=== PATIENT | male | born 1935 | race Caucasian/White ===

== ENCOUNTER 2018-10-18 07:01 | Day surgery (SDC) | payer MEDICARE, OTHER ==
[~2018-10-18] VITALS: Ht 188 cm; Wt 91.0 kg
[~2018-10-18 07:01] MED LIST: ASPI325 PO; CLOP75 PO; Cipro500 MG PO; Flomax0.4 MG PO; HYDPAM50 PO; METF500; METO25ER PO; NITR.6SL SL; OMEP20ER PO; OXYACE5T PO; PANT40 PO; QUIN5 PO; ROSU10TA PO; RXNITR.4; Vitamin D2000 UNIT PO
--- NOTE | 2018-10-18 12:01 | NUR ---
PT AND FRIEND VERBALIZES UNDERSTANDING WRITTEN AND VERBAL ORDERS. ALL AIR RELEASED FROM TR BAND. NO BLEEDING OR HEMATOMA NOTED. VSS. CALL LIGHT WITHIN REACH.
--- NOTE | 2018-10-18 13:08 | NUR ---
PT TR BAND REMOVED. DOT DRESSING APPLIED. NO BLEEDING OR HEMATOMA NOTED. SLINT AND SLING APPLIED FOR COMFORT. PT DRESSES SELF WITH MINIMAL ASSISTANCE. PT DC TO HOME VIA WC BY ESCORT.
== END 2018-10-18 13:08 | disposition home or self-care (01) ==
LOC: MHTC 07:01
DX: Z01.810 Encounter for preprocedural cardiovascular examination (principal); I35.0 Nonrheumatic aortic (valve) stenosis; I25.10 Atherosclerotic heart disease of native coronary artery without angina pectoris; I25.5 Ischemic cardiomyopathy; I10 Essential (primary) hypertension; E11.9 Type 2 diabetes mellitus without complications; I25.2 Old myocardial infarction; E78.5 Hyperlipidemia, unspecified; K21.9 Gastro-esophageal reflux disease without esophagitis; Z79.899 Other long term (current) drug therapy; Z79.82 Long term (current) use of aspirin; Z79.84 Long term (current) use of oral hypoglycemic drugs; Z87.891 Personal history of nicotine dependence; Z88.8 Allergy status to other drugs, medicaments and biological substances
CPT/HCPCS: 93454; 99152; 99153; C1769; C1894; J1644; J2250; J3010; J7030; Q9967

== ENCOUNTER 2020-02-09 12:01 | Inpatient (IN) | payer MEDICARE, OTHER ==
[~2020-02-09] VITALS: Ht 185.4 cm; Wt 86.7 kg
[~2020-02-09 12:01] MED LIST changes: -METF500; +METF500 PO
[2020-02-09] MEDS ORDERED: Quinapril HCl20 MG PO (12:19)
[2020-02-09] MEDS ORDERED: ATOR10 PO (12:19)
[2020-02-09] MEDS ORDERED: TORSE20 PO (12:21)
[2020-02-09] MEDS ORDERED: Flomax0.4 MG PO (13:41)
[2020-02-09] MEDS ORDERED: FERSU300 PO (13:43)
[2020-02-09 14:22] LABS: BASOPHILS ABSOLUTE AUTO 0.04 K/mm3 (0.00-0.23); BASOPHILS PERCENT AUTO 1 % (0-2); EOSINOPHILS ABSOLUTE AUTO 0.08 K/mm3 (0.00-0.68); EOSINOPHILS PERCENT AUTO 1 % (0-6); Hemoglobin 12.7 g/dL (13.5-17.5); IMMATURE GRAN ABSOLUTE AUTO 0.03 K/mm3 (0.00-0.10); IMMATURE GRAN PERCENT AUTO 0 % (0-1); LYMPHOCYTES PERCENT AUTO 9 % (21-46); MONOCYTES ABSOLUTE AUTO 0.53 K/mm3 (0.16-1.47); MONOCYTES PERCENT AUTO 6 % (4-13); Mean Corpuscular HGB Conc 31.8 g/dL (31.5-36.5); Mean Corpuscular Volume 88 fL (80-100); Mean Platelet Volume 10.9 fL (9.1-12.4); NEUTROPHILS ABSOLUTE AUTO 7.23 K/mm3 (1.96-9.15); NEUTROPHILS PERCENT AUTO 83 % (41-73); Platelet Count 163 K/mm3 (150-400); RDW Coefficient Variation 14.8 % (11.7-14.2); RDW Standard Deviation 48.2 fL (35.1-46.3); Red Blood Cell Count 4.53 M/mm3 (4.30-5.90); White Blood Cell Count 8.71 K/mm3 (4.00-11.30)
[2020-02-09 14:37] LABS: International Normalized Ratio 1.02; Prothrombin Time Results 10.9 Sec (9.7-11.5)
[2020-02-09 14:54] LABS: Alanine Aminotransfer (ALT/SGP 32 U/L (12-78); Albumin, Blood 3.7 g/dL (3.4-5.0); Albumin/Globulin Ratio 0.9 (0.8-1.8); Alk Phos 101 U/L (50-136); Anion Gap 5 mmol/L (6-16); Aspartate Aminotrans (AST/SGOT 64 U/L (12-37); Bilirubin, Total 0.6 mg/dL (0.1-1.0); Blood Urea Nitrogen 17 mg/dL (8-24); Bun/Creatinine Ratio 21.3 (12.0-20.0); CO2, Blood 27 mmol/L (21-32); Calcium, Blood 8.9 mg/dL (8.5-10.1); Chloride, Blood 108 mmol/L (98-108); Globulin, Blood 4.2 g/dL (2.2-4.0); Glomerular Filtration Rate >60 (60-); Glucose, Blood 122 mg/dL (70-99); Potassium, Blood 4.3 mmol/L (3.5-5.5); Sodium, Blood 140 mmol/L (136-145); Total Protein, Blood 7.9 g/dL (6.4-8.2)
--- NOTE | 2020-02-09 19:30 | NUR ---
SHIFT SUMMARY PATIENT STATES MUSCLE SPASMS TO RLE IMPROVED WITH PO AND IV PAIN MEDS. CIRC CHECKS TO LE'S WNL. TOLERATING PO. VOIDING.IVF INFUSING PER ORDER. DR PRATHER IN TO SEE AT SHIFT CHANGE. PLAN FOR CARDIAC CONSULT AND ECHO PRIOR TO SURGERY. NO ACUTE CHANGES.
--- NOTE | 2020-02-10 05:26 | NUR ---
PT VSS T/O NIGHT. RLE SHORTENED, EXT ROTATED, CAP REFILL WNL. PAIN MGD W/PO PAIN MEDS AND ICE W/REP RELIEF. PT REPOSITIONED GENTLY KAUSHIK. PT NPO POST MIDNIGHT FOR PLAN FOR OR TODAY. CARDIOLOGY CONSULT PENDING. PT USING CALL LIGHT FOR ASSISTANCE. WILL CONT TO MONITOR UNTIL REP GIVEN TO ONCOMING RN.
--- NOTE | 2020-02-10 16:55 | NUR ---
PREOPED PT IN ROOM 213. Surgical site prepped with 2% Chlorhexidine cloth wipe. History, Chart, Medications and Allergies reviewed before start of procedure. Lungs clear T/O to Auscultation. Patient confirms NPO status and agrees with scheduled surgery. Pre-Op teaching done. Pt verbalizes understanding.
--- NOTE | 2020-02-10 17:20 | NUR ---
PATIENT TO DAY SURGERY AT THIS TIME. NO ACUTE CHANGES.
--- NOTE | 2020-02-11 04:09 | NUR ---
SHIFT SUMMARY PT IS S/P R KELLIE HIP, AND RETURNED TO ROOM 213 APPROX [id number]. UPON ARRIVAL PT WAS VERY DROWSY AND ON 5L O2 NC. O2 WEANED DOWN TO 2L MAINTAING O2 SAT. BIOX IN PLACE AND TELE ON. AROUND 0200 PT AWAKENED, VOIDED IN URINAL, AND ATE SOME SNACKS. PT IS A/O AT THIS TIME. PT REPORTS PAIN MANAGED WELL WITH PO PAIN MED. TOLERATING PO INTAKE. VSS. PT CURRENTLY ON 1-2L O2 NC WITH O2 SAT ABOVE 92%. DRESSING TO R HIP CDI, PEDAL PULSES STRONG, CAP REFIL <3 SEC. SCD'S AND FRANTZ'S IN PLACE.
[2020-02-11 04:34] LABS: BASOPHILS ABSOLUTE AUTO 0.01 K/mm3 (0.00-0.23); BASOPHILS PERCENT AUTO 0 % (0-2); EOSINOPHILS PERCENT AUTO 0 % (0-6); Hemoglobin 10.6 g/dL (13.5-17.5); IMMATURE GRAN ABSOLUTE AUTO 0.03 K/mm3 (0.00-0.10); IMMATURE GRAN PERCENT AUTO 0 % (0-1); LYMPHOCYTES PERCENT AUTO 4 % (21-46); MONOCYTES ABSOLUTE AUTO 0.55 K/mm3 (0.16-1.47); MONOCYTES PERCENT AUTO 6 % (4-13); Mean Corpuscular HGB 28.5 pg (26.0-34.0); Mean Corpuscular HGB Conc 32.1 g/dL (31.5-36.5); Mean Corpuscular Volume 89 fL (80-100); Mean Platelet Volume 11.7 fL (9.1-12.4); NEUTROPHILS ABSOLUTE AUTO 8.85 K/mm3 (1.96-9.15); NEUTROPHILS PERCENT AUTO 90 % (41-73); Platelet Count 111 K/mm3 (150-400); RDW Coefficient Variation 15.3 % (11.7-14.2); RDW Standard Deviation 49.9 fL (35.1-46.3); Red Blood Cell Count 3.72 M/mm3 (4.30-5.90); White Blood Cell Count 9.84 K/mm3 (4.00-11.30)
[2020-02-11 04:56] LABS: Albumin, Blood 2.9 g/dL (3.4-5.0); Anion Gap 5 mmol/L (6-16); Blood Urea Nitrogen 18 mg/dL (8-24); Bun/Creatinine Ratio 23.9 (12.0-20.0); CO2, Blood 25 mmol/L (21-32); Calcium, Blood 7.9 mg/dL (8.5-10.1); Chloride, Blood 107 mmol/L (98-108); Creatinine, Blood 0.75 mg/dL (0.60-1.20); Glomerular Filtration Rate >60 (60-); Glucose, Blood 247 mg/dL (70-99); Magnesium, Blood 1.6 mg/dL (1.6-2.4); Phosphorus, Blood 2.6 mg/dL (2.5-4.9); Potassium, Blood 4.7 mmol/L (3.5-5.5); Sodium, Blood 137 mmol/L (136-145); Troponin I 0.017 ng/mL (0.000-0.040)
--- NOTE | 2020-02-11 10:37 | NUR ---
THERAPY IN ROOM.
--- NOTE | 2020-02-11 11:07 | NUR ---
DR PRATHER HERE TO SEE PT, FAMILY AND THERAPY IN ROOM.
--- NOTE | 2020-02-11 16:04 | NUR ---
SHIFT SUMMARY PT EATING AND DRINKING, VOIDING. PT BEEN ASSISTED WITH ADL'S PRN. PT WORKED WITH THERAPY TODAY. PT BEEN UP AND AMBULATED WITH ASSIST AND WALKER. FAMILY IN ROOM EARLIER TODAY. PT REPORTS HAVING WALKER AT HOME.
--- NOTE | 2020-02-11 20:47 | NUR ---
READY FOR BED.
--- NOTE | 2020-02-12 04:30 | NUR ---
SHIFT SUMMARY PT A/O X4. AMBULATING WITH SBA AND FWW. PT HAS BEEN UP TO BATHROOM SEVERAL TIMES T/O SHIFT. PAIN MANAGED WTIH PO PAIN MED PER ORDERS. TOLERATING PO INTAKE AND VOIDING. REPORTS NO BM X2-3 DAYS; DISCUSSED BOWEL CARE AND MED WITH STOOL SOFTENERS PER ORDERS. NO ACUTE CHANGES OVERNIGHT.
[2020-02-12 04:52] LABS: BASOPHILS ABSOLUTE AUTO 0.02 K/mm3 (0.00-0.23); BASOPHILS PERCENT AUTO 0 % (0-2); EOSINOPHILS ABSOLUTE AUTO 0.14 K/mm3 (0.00-0.68); EOSINOPHILS PERCENT AUTO 2 % (0-6); Hematocrit 29.2 % (37.0-53.0); Hemoglobin 9.5 g/dL (13.5-17.5); IMMATURE GRAN ABSOLUTE AUTO 0.07 K/mm3 (0.00-0.10); IMMATURE GRAN PERCENT AUTO 1 % (0-1); LYMPHOCYTES ABSOLUTE AUTO 1.45 K/mm3 (0.84-5.20); LYMPHOCYTES PERCENT AUTO 16 % (21-46); MONOCYTES ABSOLUTE AUTO 0.98 K/mm3 (0.16-1.47); MONOCYTES PERCENT AUTO 11 % (4-13); Mean Corpuscular HGB 28.6 pg (26.0-34.0); Mean Corpuscular HGB Conc 32.5 g/dL (31.5-36.5); Mean Corpuscular Volume 88 fL (80-100); Mean Platelet Volume 11.4 fL (9.1-12.4); NEUTROPHILS ABSOLUTE AUTO 6.65 K/mm3 (1.96-9.15); NEUTROPHILS PERCENT AUTO 71 % (41-73); Platelet Count 101 K/mm3 (150-400); RDW Coefficient Variation 15.7 % (11.7-14.2); RDW Standard Deviation 49.6 fL (35.1-46.3); Red Blood Cell Count 3.32 M/mm3 (4.30-5.90); White Blood Cell Count 9.31 K/mm3 (4.00-11.30)
[2020-02-12 05:10] LABS: Albumin, Blood 2.7 g/dL (3.4-5.0); Anion Gap 6 mmol/L (6-16); Blood Urea Nitrogen 26 mg/dL (8-24); Bun/Creatinine Ratio 29.1 (12.0-20.0); CO2, Blood 25 mmol/L (21-32); Calcium, Blood 7.8 mg/dL (8.5-10.1); Chloride, Blood 108 mmol/L (98-108); Creatinine, Blood 0.89 mg/dL (0.60-1.20); Glomerular Filtration Rate >60 (60-); Glucose, Blood 134 mg/dL (70-99); Magnesium, Blood 1.8 mg/dL (1.6-2.4); Phosphorus, Blood 2.4 mg/dL (2.5-4.9); Potassium, Blood 3.8 mmol/L (3.5-5.5); Sodium, Blood 139 mmol/L (136-145)
--- NOTE | 2020-02-12 11:23 | NUR ---
THERAPY BEEN TO WORK WITH PT.
--- NOTE | 2020-02-12 13:01 | NUR ---
THERAPY RECENTLY TO ROOM.
[2020-02-12] MEDS ORDERED: METO50ER PO (14:43)
[2020-02-12] MEDS ORDERED: ACET325 PO (14:46)
[2020-02-12] MEDS ORDERED: TORSE20 PO (14:46)
[2020-02-12] MEDS ORDERED: DOCUZEN 8.6-501 EACH PO (14:48)
[2020-02-12] MEDS ORDERED: Percocet 5-3251 EACH PO (14:49)
--- NOTE | 2020-02-12 15:24 | NUR ---
DISCHARGE: PT EATING AND DRINKING, VOIDING, PASSING GAS. PT CLEARED THERAPY TO GO HOME WITH H.H.. PT PAIN TOLERABLE ON PO PAIN MEDICATION. PT REPORTS HAVING APPR EQUIP AT HOME. PT SENT WITH SCRIPT FOR PAIN MED, OTHER MEDICATION CHANGES CALLED TO [facility]. FAMILY HERE DURING DISCHARGE WELL EARLIER TODAY WHEN THERAPY WAS IN ROOM. PT CLEARED BY DR PRATHER TO GO HOME. DR PRATHER REPORTED D/C ASPIRIN ORDER ON DISCHARGE PT IS ALSO ON PLAVIX.
== END 2020-02-12 15:15 | disposition home health service (06) | DRG 470 ==
LOC: ER 12:01 → SURS 13:21
PROVIDERS: Internal Medicine Gastroenterology; Nurse Practitioner Acute Care; Student in an Organized Health Care Education/Training Program; ADMIT Internal Medicine
PROC: 0SRR0JA Replacement of Right Hip Joint, Femoral Surface with Synthetic Substitute, Uncemented, Open Approach (ICD-10-PCS; principal; 2020-02-11)
DX: S72.001A Fracture of unspecified part of neck of right femur, initial encounter for closed fracture (principal); I50.22 Chronic systolic (congestive) heart failure; W11.XXXA Fall on and from ladder, initial encounter; I25.5 Ischemic cardiomyopathy; E11.9 Type 2 diabetes mellitus without complications; K59.00 Constipation, unspecified; I25.10 Atherosclerotic heart disease of native coronary artery without angina pectoris; K21.9 Gastro-esophageal reflux disease without esophagitis; N40.0 Benign prostatic hyperplasia without lower urinary tract symptoms; E78.5 Hyperlipidemia, unspecified; I11.0 Hypertensive heart disease with heart failure; K22.70 Barrett's esophagus without dysplasia; Z95.5 Presence of coronary angioplasty implant and graft; Z95.2 Presence of prosthetic heart valve; I25.2 Old myocardial infarction; Z79.84 Long term (current) use of oral hypoglycemic drugs; Z79.02 Long term (current) use of antithrombotics/antiplatelets; Z87.891 Personal history of nicotine dependence
CPT/HCPCS: 36415; 72170; 73502; 80053; 80069; 82947; 83735; 83880; 84484; 85025; 85610; 88305; 88311; 93005; 93010; 93306; 94762; 97110; 97116; 97162; 97166; 97535; 99285-25; A9270; A9270-GY; C1776; J0690; J1100; J1885; J1940; J2405; J2704; J3010; J7030; J7120; U0002

== ENCOUNTER 2020-03-31 15:49 | Emergency (ER) | payer MEDICARE, OTHER ==
[~2020-03-31] VITALS: Ht 188 cm; Wt 86.2 kg
== END 2020-03-31 17:34 | disposition home or self-care (01) ==
LOC: ER 15:49
DX: I11.0 Hypertensive heart disease with heart failure (principal); I50.9 Heart failure, unspecified; I25.10 Atherosclerotic heart disease of native coronary artery without angina pectoris; N40.0 Benign prostatic hyperplasia without lower urinary tract symptoms; E11.9 Type 2 diabetes mellitus without complications; E78.5 Hyperlipidemia, unspecified; I25.2 Old myocardial infarction; Z95.5 Presence of coronary angioplasty implant and graft; Z87.891 Personal history of nicotine dependence; Z79.02 Long term (current) use of antithrombotics/antiplatelets; Z79.84 Long term (current) use of oral hypoglycemic drugs; Z79.899 Other long term (current) drug therapy
CPT/HCPCS: 36415; 93005; 93010; 96374; 99284-25; J1940

== ENCOUNTER → 2020-03-31 | Outpatient (CLI) | payer MEDICARE, OTHER ==
[~2020-03-31] MED LIST changes: +ACET325 PO; +ATOR10 PO; +DOCUZEN 8.6-501 EACH PO; +FERSU300 PO; +METO50ER PO; +Percocet 5-3251 EACH PO; +Quinapril HCl20 MG PO; +TORSE20 PO
[2020-03-31 15:00] LABS: BASOPHILS ABSOLUTE AUTO 0.02 K/mm3 (0.00-0.23); BASOPHILS PERCENT AUTO 0 % (0-2); EOSINOPHILS ABSOLUTE AUTO 0.07 K/mm3 (0.00-0.68); EOSINOPHILS PERCENT AUTO 1 % (0-6); Hematocrit 32.1 % (37.0-53.0); Hemoglobin 10.5 g/dL (13.5-17.5); IMMATURE GRAN ABSOLUTE AUTO 0.03 K/mm3 (0.00-0.10); IMMATURE GRAN PERCENT AUTO 1 % (0-1); LYMPHOCYTES PERCENT AUTO 16 % (21-46); MONOCYTES ABSOLUTE AUTO 0.42 K/mm3 (0.16-1.47); MONOCYTES PERCENT AUTO 9 % (4-13); Mean Corpuscular HGB 29.5 pg (26.0-34.0); Mean Corpuscular HGB Conc 32.7 g/dL (31.5-36.5); Mean Corpuscular Volume 90 fL (80-100); Mean Platelet Volume 10.2 fL (9.1-12.4); NEUTROPHILS ABSOLUTE AUTO 3.56 K/mm3 (1.96-9.15); NEUTROPHILS PERCENT AUTO 73 % (41-73); Platelet Count 216 K/mm3 (150-400); RDW Coefficient Variation 15.9 % (11.7-14.2); RDW Standard Deviation 52.6 fL (35.1-46.3); Red Blood Cell Count 3.56 M/mm3 (4.30-5.90)
[2020-03-31 15:04] LABS: Anion Gap 6 mmol/L (6-16); Blood Urea Nitrogen 26 mg/dL (8-24); Bun/Creatinine Ratio 26.3 (12.0-20.0); CO2, Blood 30 mmol/L (21-32); Calcium, Blood 8.9 mg/dL (8.5-10.1); Chloride, Blood 102 mmol/L (98-108); Creatinine, Blood 0.99 mg/dL (0.60-1.20); Glomerular Filtration Rate >60 (60-); Glucose, Blood 156 mg/dL (70-99); Potassium, Blood 4.3 mmol/L (3.5-5.5); Sodium, Blood 138 mmol/L (136-145)
== END | disposition home or self-care (01) ==
LOC: LAB SHORT 14:54 → LAB EV 14:54
PROVIDERS: Physician Assistant Surgical
DX: R06.09 Other forms of dyspnea (principal)
CPT/HCPCS: 80048; 83880; 85025

== ENCOUNTER → 2020-04-07 | Outpatient (CLI) | payer MEDICARE, OTHER ==
[2020-04-07 16:32] LABS: BASOPHILS ABSOLUTE AUTO 0.03 K/mm3 (0.00-0.23); BASOPHILS PERCENT AUTO 0 % (0-2); EOSINOPHILS ABSOLUTE AUTO 0.11 K/mm3 (0.00-0.68); EOSINOPHILS PERCENT AUTO 2 % (0-6); Hematocrit 32.9 % (37.0-53.0); Hemoglobin 10.7 g/dL (13.5-17.5); IMMATURE GRAN ABSOLUTE AUTO 0.02 K/mm3 (0.00-0.10); IMMATURE GRAN PERCENT AUTO 0 % (0-1); LYMPHOCYTES ABSOLUTE AUTO 1.09 K/mm3 (0.84-5.20); LYMPHOCYTES PERCENT AUTO 15 % (21-46); MONOCYTES ABSOLUTE AUTO 0.69 K/mm3 (0.16-1.47); MONOCYTES PERCENT AUTO 9 % (4-13); Mean Corpuscular HGB Conc 32.5 g/dL (31.5-36.5); Mean Corpuscular Volume 89 fL (80-100); Mean Platelet Volume 11.3 fL (9.1-12.4); NEUTROPHILS ABSOLUTE AUTO 5.43 K/mm3 (1.96-9.15); NEUTROPHILS PERCENT AUTO 74 % (41-73); Platelet Count 216 K/mm3 (150-400); RDW Coefficient Variation 15.5 % (11.7-14.2); RDW Standard Deviation 51.1 fL (35.1-46.3); Red Blood Cell Count 3.69 M/mm3 (4.30-5.90); White Blood Cell Count 7.37 K/mm3 (4.00-11.30)
[2020-04-07 16:51] LABS: Alanine Aminotransfer (ALT/SGP 26 U/L (12-78); Albumin, Blood 3.5 g/dL (3.4-5.0); Albumin/Globulin Ratio 0.7 (0.8-1.8); Alk Phos 149 U/L (40-126); Anion Gap 5 mmol/L (6-16); Aspartate Aminotrans (AST/SGOT 57 U/L (12-37); Bilirubin, Total 0.7 mg/dL (0.1-1.0); Blood Urea Nitrogen 19 mg/dL (8-24); Bun/Creatinine Ratio 17.9 (12.0-20.0); CO2, Blood 33 mmol/L (21-32); Calcium, Blood 9.1 mg/dL (8.5-10.1); Chloride, Blood 100 mmol/L (98-108); Creatinine, Blood 1.06 mg/dL (0.60-1.20); Globulin, Blood 4.8 g/dL (2.2-4.0); Glomerular Filtration Rate >60 (60-); Glucose, Blood 122 mg/dL (70-99); Potassium, Blood 4.1 mmol/L (3.5-5.5); Sodium, Blood 138 mmol/L (136-145); Thyroid Stimulating Hormone 1.755 uIU/mL (0.360-4.800); Total Protein, Blood 8.3 g/dL (6.4-8.2)
== END | disposition home or self-care (01) ==
LOC: LAB SHORT 14:06 → LAB EV 14:06
PROVIDERS: General Practice
DX: E13.621 Other specified diabetes mellitus with foot ulcer (principal); I50.9 Heart failure, unspecified; R53.81 Other malaise
CPT/HCPCS: 80053; 83735; 83880; 84443; 85025; 87070; 87075; 87077; 87147; 87186; 87205

== ENCOUNTER → 2020-06-18 | Outpatient (CLI) | payer MEDICARE, OTHER ==
[~2020-06-18] MED LIST changes: +ALBU90OI INH; +ANORO ELLIPTA1 EAC1 INH; +ANORO ELLIPTA1 EACH INH; +ANTIFUNGAL POWD71 GM TOP; +APHEN325 MG PO; +Aspirin EC81 MG PO; +Ativan1 MG PO; +BISA10S PR; +BUME2 PO; +BUMETANIDE2 MG PO; +FINA5 PO; +FURO20 PO; +FUROSEMIDE20 MG PO; +GABA300 PO; +LISI5 PO; +MAGCIT300 PO; +MELATONIN5 M1 PO; +METO5 PO; +MIRALAX17 GM PO; +MORP20L PO; +POTA10T PO; +Potassium Chlo20 ME1 PO; +SPIR25 PO
[2020-06-18 12:39] LABS: BASOPHILS ABSOLUTE AUTO 0.03 K/mm3 (0.00-0.23); BASOPHILS PERCENT AUTO 0 % (0-2); EOSINOPHILS ABSOLUTE AUTO 0.07 K/mm3 (0.00-0.68); EOSINOPHILS PERCENT AUTO 1 % (0-6); Hematocrit 33.8 % (37.0-53.0); Hemoglobin 11.1 g/dL (13.5-17.5); IMMATURE GRAN ABSOLUTE AUTO 0.01 K/mm3 (0.00-0.10); IMMATURE GRAN PERCENT AUTO 0 % (0-1); LYMPHOCYTES ABSOLUTE AUTO 0.93 K/mm3 (0.84-5.20); LYMPHOCYTES PERCENT AUTO 14 % (21-46); MONOCYTES PERCENT AUTO 9 % (4-13); Mean Corpuscular HGB 30.1 pg (26.0-34.0); Mean Corpuscular HGB Conc 32.8 g/dL (31.5-36.5); Mean Corpuscular Volume 92 fL (80-100); Mean Platelet Volume 11.3 fL (9.1-12.4); NEUTROPHILS ABSOLUTE AUTO 5.21 K/mm3 (1.96-9.15); NEUTROPHILS PERCENT AUTO 76 % (41-73); Platelet Count 150 K/mm3 (150-400); RDW Coefficient Variation 17.2 % (11.7-14.2); RDW Standard Deviation 58.2 fL (35.1-46.3); Red Blood Cell Count 3.69 M/mm3 (4.30-5.90); White Blood Cell Count 6.85 K/mm3 (4.00-11.30)
[2020-06-18 12:50] LABS: Albumin, Blood 3.7 g/dL (3.4-5.0); Albumin/Globulin Ratio 0.9 (0.8-1.8); Bilirubin, Total 1.1 mg/dL (0.1-1.0); Bun/Creatinine Ratio 18.6 (12.0-20.0); Calcium, Blood 8.8 mg/dL (8.5-10.1); Creatinine, Blood 1.18 mg/dL (0.60-1.20); Globulin, Blood 4.1 g/dL (2.2-4.0); Magnesium, Blood 1.4 mg/dL (1.6-2.4); Potassium, Blood 3.8 mmol/L (3.5-5.5); Total Protein, Blood 7.8 g/dL (6.4-8.2)
== END ==
LOC: LAB SHORT 12:33
PROVIDERS: Physician Assistant
DX: M79.605 Pain in left leg (principal)
CPT/HCPCS: 80053; 83735; 85025

== ENCOUNTER 2020-07-12 16:52 | Inpatient (IN) | payer MEDICARE, OTHER ==
[~2020-07-12] VITALS: Ht 188 cm; Wt 101.0 kg
[~2020-07-12 16:52] MED LIST changes: -ALBU90OI INH; -ANORO ELLIPTA1 EAC1 INH; -ANORO ELLIPTA1 EACH INH; -ANTIFUNGAL POWD71 GM TOP; -APHEN325 MG PO; -Aspirin EC81 MG PO; -Ativan1 MG PO; -BISA10S PR; -BUME2 PO; -BUMETANIDE2 MG PO; -FINA5 PO; -FURO20 PO; -FUROSEMIDE20 MG PO; -GABA300 PO; -LISI5 PO; -MAGCIT300 PO; -MELATONIN5 M1 PO; -METO5 PO; -MIRALAX17 GM PO; -MORP20L PO; -POTA10T PO; -Potassium Chlo20 ME1 PO; -SPIR25 PO
[2020-07-12 17:24] LABS: BASOPHILS ABSOLUTE AUTO 0.03 K/mm3 (0.00-0.23); BASOPHILS PERCENT AUTO 0 % (0-2); EOSINOPHILS ABSOLUTE AUTO 0.13 K/mm3 (0.00-0.68); EOSINOPHILS PERCENT AUTO 2 % (0-6); Hemoglobin 11.7 g/dL (13.5-17.5); IMMATURE GRAN ABSOLUTE AUTO 0.02 K/mm3 (0.00-0.10); IMMATURE GRAN PERCENT AUTO 0 % (0-1); LYMPHOCYTES ABSOLUTE AUTO 0.75 K/mm3 (0.84-5.20); LYMPHOCYTES PERCENT AUTO 10 % (21-46); MONOCYTES ABSOLUTE AUTO 0.64 K/mm3 (0.16-1.47); MONOCYTES PERCENT AUTO 9 % (4-13); Mean Corpuscular HGB 29.7 pg (26.0-34.0); Mean Corpuscular HGB Conc 31.6 g/dL (31.5-36.5); Mean Corpuscular Volume 94 fL (80-100); Mean Platelet Volume 11.3 fL (9.1-12.4); NEUTROPHILS ABSOLUTE AUTO 5.87 K/mm3 (1.96-9.15); NEUTROPHILS PERCENT AUTO 79 % (41-73); Platelet Count 145 K/mm3 (150-400); RDW Coefficient Variation 16.4 % (11.7-14.2); RDW Standard Deviation 56.1 fL (35.1-46.3); Red Blood Cell Count 3.94 M/mm3 (4.30-5.90); White Blood Cell Count 7.44 K/mm3 (4.00-11.30)
[2020-07-12 17:43] LABS: Anion Gap 10 mmol/L (6-16); Blood Urea Nitrogen 39 mg/dL (8-24); Bun/Creatinine Ratio 41.7 (12.0-20.0); CO2, Blood 30 mmol/L (21-32); Chloride, Blood 100 mmol/L (98-108); Creatinine, Blood 0.94 mg/dL (0.60-1.20); Glomerular Filtration Rate >60 (60-); Glucose, Blood 131 mg/dL (70-99); Potassium, Blood 3.9 mmol/L (3.5-5.5); Sodium, Blood 140 mmol/L (136-145); Troponin I 0.028 ng/mL (0.000-0.040)
[2020-07-12] MEDS ORDERED: ANORO ELLIPTA1 EAC1 INH (19:55)
[2020-07-12] MEDS ORDERED: BUMETANIDE2 MG PO (19:55)
[2020-07-12] MEDS ORDERED: Aspirin EC81 MG PO (19:57)
--- NOTE | 2020-07-12 22:52 | NUR ---
PATIENT IS A NEW ADMIT FROM THE ED. THREE PERSON TRANSFER FROM [facility] TO BED. ARRIVED ON 2L O2 NC AND 2L O2 BASELINE. AXO X3 USING URINAL AT BEDSIDE. LASIX GIVEN IN ED. ONE PERSON ASSIST TO BSC. SOB WITH EXERTION. COMPRESSION STOCKING REMOVED. SON PRESENT ON ADMIT AND LEFT AFTER HEALTH HX PART OF ADMISSION. PATIENT ORIENTED TO ROOM AND CALL LIGHT SYSTEM. REPORTS COLD AND WARM BLANKET PROVIDED. DENIES CHEST PAIN AND N/V. WILL CONTINUE TO MONITOR.
--- NOTE | 2020-07-13 03:39 | NUR ---
PATIENT REPORTED NOT BEING ABLE TO RETRACT FORESKIN WITH SWELLING OF SCROTUM AND PENIS. HOSPITALIST DR RAMOS NOTIFIED AND REPORTED HE OFFERED TO PLACE RODRIGUEZ CATHETER IN ED AND PATIENT REFUSED. PATIENT OFFERED AGAIN NOW REFUSING AT THIS TIME. ELEVATION AND ICE OFFERED AND DECLINED. PATIENT IS VOIDING ON LASIX.
--- NOTE | 2020-07-13 03:43 | NUR ---
SHIFT SUMMARY PATIENT HAD NO ACUTE CHANGES OBSERVED. AXOX 3 USING URINAL AT BEDSIDE. IV LASIX GIVEN IN ED AND SCHEDULED PER EMAR. PATIENT REPORTS NOT ABLE TO RETRACT FORESKIN WITH SWELLING OF PENIS AND SCROTUM (SEE DROnofreNOTE). PIV REMAINS INTACT. HOP WEIGHER REPORTS A-FIB 60'S-70'S. ON 2L O2 NC BASELINE. FLUID RESTRICTION 1,200 mL. TAKES MEDICATION WHOLE WITH WATER. VSS/AFEBRILE. DENIES PAIN AND N/V. CALL LIGHT IN REACH. BED IN LOWEST POSITION. WILL CONTINUE TO MONITOR UNTIL DAY SHIFT NURSE ASSUMES CARE.
[2020-07-13 05:14] LABS: Anion Gap 6 mmol/L (6-16); Blood Urea Nitrogen 35 mg/dL (8-24); Bun/Creatinine Ratio 39.4 (12.0-20.0); CO2, Blood 34 mmol/L (21-32); Calcium, Blood 9.1 mg/dL (8.5-10.1); Chloride, Blood 101 mmol/L (98-108); Creatinine, Blood 0.89 mg/dL (0.60-1.20); Glomerular Filtration Rate >60 (60-); Glucose, Blood 116 mg/dL (70-99); Potassium, Blood 3.4 mmol/L (3.5-5.5); Sodium, Blood 141 mmol/L (136-145)
[2020-07-13] MEDS ORDERED: GABA300 PO (14:58)
[2020-07-13] MEDS ORDERED: MAGCIT300 PO (14:58)
[2020-07-13] MEDS ORDERED: APHEN325 MG PO (14:59)
--- NOTE | 2020-07-13 15:36 | NUR ---
PATIENT IS ALERT AND ORIENTED. PLEASANT AND COOPERATIVE WITH STAFF. VITALS HAVE BEEN STABLE AND WNL; REMAINS ON 2LO2 NC. RESPIRATIONS LABORED; SOME ACCESSORY MUSCLE USAGE NOTED. HAS BEEN RECIEVING IV LASIX PER EMAR. DENIES PAIN AND DISCOMFORT. CALLS APPROPRIATELY FOR STAFF ASSIST. PATIENT RESTING IN ROOM AT THIS TIME WITH SON VISITING AT BEDSIDE. CALL LIGHT WITHIN REACH. WILL CONTINUE TO MONITOR AND PROVIDE CARE.
--- NOTE | 2020-07-13 16:46 | NUR ---
ADMIT:07/12/20 DISCHARGE: DX:Acute on chronic systolic congestive heart failure CC: ADMIT: 02/09/20 DISCHARGE: 02/12/20 DX: R HIP FX [facility] CALL: Pt at home, RESIDENCE: home with CAREGIVER: self DX: Afib, cardiomyopathy, COPD, Aortic Valve replacement, DM-type 2 DME: Adult pullups, 4-wheel walker, O2, DM supplies CCM: Referral2019 HOME HEALTH: [facility]- 2019 SUMMARY: Admit: 07/12/20 07/13/20- Meet and spoke with pt. He expressed concern about his decrease in physical health and the desire to look into assisted living for him and his . He stated that he has paid into a long-term care plan that can help pay for a place. He would like to be in a place that is on the ground floor so that he can easily get his out in case of an emergency, 2-bedroom and large enough to fit the items from their home that they have picked out. Pt's son' Vincent is down here from [facility] to help take care of pt and his who has dementia and help them with their health and living situation. Spoke with son on the phone and was asked by the pt to have him bring in a few items from home when he comes to visit. Meet with both the patient and his son later in the day and gave son pamphlets for various assisted living places in the area for him to contact. Discussed what Demar's needs are and the kind of place he would like to move into. Son shared that he will contact places to live, he will have his friend help him contact the long-term living insurance to find out what benefits they have. Son brought up concerns that the pt was confused on his medications, his diet has not been the best, and pt looks worse than when he was here last. Discussed with son and pt what to do until they find a place to move into. Gave them a list of caregivers they could contact to come in and help with care needs, cleaning and some nursing needs. Also discussed home health options and gave pamphlets for [facility] and [facility]. Vincent will take these items and review them with his siblings but ultimately they will do what their parent's wishes are. Reviewed [facility] letter with them, as est ETA for d/c is tomorrow. Provided contact information. -gigi 1: Acute on chronic systolic (congestive) heart failure A/P: - start lasix 40 mg iv q6hrs - monitor bmp - strict i/os - fluid restriction of 1200 cc/day - cpap - potassium supplement. 2: Acute and chronic respiratory failure with hypoxia A/P: as above 3: Paroxysmal A-fib A/P: Resume home med regimen. 4: Diabetes A/P: Resume home med regimen. hold metformin. 5: HTN (hypertension) A/P: Resume home med regimen. --------- 02/12/20 DISCHARGED HOME, USE FRONT WHEEL WALKER, FULL WEIGHT BERRING, HOME HEALTH ORDERED AT DISCHARGE. HE NORMALLY HELPS WITH CARE. SAYS HE WILL ARRANGE CAREGIVER ASSISTANCE FOR HER. FOLLOW UP EFM 2 WEEKS.
--- NOTE | 2020-07-13 17:18 | NUR ---
PATIENT'S SON AT BEDSIDE. REQUESTED TO GET AN UPDATE FROM THE PHYSICIAN. CALLED DR ROCHA AT 1710 AND ASKED IF HE MIGHT BE AVAILABLE TO SPEAK WITH THE SON. SAID HE WAS BUSY AND WOULD CALL TO UPDATE SON TOMORROW MORNING.
--- NOTE | 2020-07-14 05:07 | NUR ---
SHIFT SUMMARY ASSUMED CARE OF PT AT 1900. PT IS A/OX3 BUT DURING THE NIGHT PT BECAME CONFUSED AND THOUGHT THAT EACH TIME HE WOKE UP THAT IT WAS MORNING AND HE WAS LEAVING. HEART SOUNDS IRREGULAR, TELE SHOWS AFIB BBB @ 73. LUNG SOUNDS HAVE CRACKLES IN THE L LUNG BASE. PT IS ON 2L NC AT BASELINE BUT WOULD REPEATIVLY TAKE OFF HIS OXYGEN DURING THE NIGHT. PT SCROTUM WAS VERY EDEMADOUS, NYASTATIN CREAM APPLIED TO GROIN DUE TO REDNESS. PT WAS 1P SBA TO BATHROOM WITH FWW. PT TAKES PILLS WITH WATER. CALL LIGHT IN REACH, BED IN LOWEST POSTION, BED ALARM ON.
[2020-07-14 12:01] LABS: Anion Gap 5 mmol/L (6-16); Blood Urea Nitrogen 29 mg/dL (8-24); Bun/Creatinine Ratio 31.1 (12.0-20.0); CO2, Blood 35 mmol/L (21-32); Calcium, Blood 8.8 mg/dL (8.5-10.1); Chloride, Blood 100 mmol/L (98-108); Creatinine, Blood 0.93 mg/dL (0.60-1.20); Glomerular Filtration Rate >60 (60-); Glucose, Blood 141 mg/dL (70-99); Potassium, Blood 3.4 mmol/L (3.5-5.5); Sodium, Blood 140 mmol/L (136-145)
--- NOTE | 2020-07-14 18:29 | NUR ---
PATIENT IS ALERT AND ORIENTED AND COOPERATIVE WITH CARE. PATIENT C/O RINGING IN HIS LEFT EAR ALONG WITH UPPER [place] THAT IS ABNORMAL FOR HIM. 2L 02 VIA NC. NO C/O SOB TODAY. PHYSICAL THERAPY WORKED WITH THE PATIENT THIS MORNING. DAILY WEIGHT TAKEN TODAY SHOWING 222.2 LBS. FLUID RESTRICTION INCREASED TO 1,500 ML A DAY. WILL CONTINUE TO MONITOR.
--- NOTE | 2020-07-15 04:27 | NUR ---
SHIFT SUMMARY PT HAD AN UNEVENTFUL NIGHT. PT HAS SOME URGENCY WITH VOIDING WHILE ALSO HAVING DIFFICULTY AT TIMES STARTING HIS STREAM. APPEARED TO DO BEST WHEN GETTING UP ALL THE WAY TO THE RESTROOM. PT IS A/O. IMPULSIVE. SOME INTERMITTENT MILD CONFUSION. NO COMPLAINTS OF PAIN. VITAL SIGNS STABLE. PT IS EAGER TO RETURN HOME. WILL CONTINUE TO MONITOR AND REPORT TO DAY RN.
[2020-07-15] MEDS ORDERED: POTA10T PO (15:55)
[2020-07-15] MEDS ORDERED: FURO20 PO (15:56)
[2020-07-15] MEDS ORDERED: ALBU90OI INH (15:57)
[2020-07-15] MEDS ORDERED: LISI5 PO ×2 (15:57→20:46)
--- NOTE | 2020-07-15 16:59 | NUR ---
PATIENT D/C'D TO HOME WITH SON JAKI. [facility] ON [address]. [place] INSTRUCTIONS AND EDUCATION DISCUSSED WITH PATIENT AND SON AND COPY PROVIDED. PATIENT DENIES ANY FURTHER QUESTIONS OR CONCERNS.
[2020-07-15] MEDS ORDERED: Potassium Chlo20 ME1 PO (20:45)
[2020-07-15] MEDS ORDERED: FUROSEMIDE20 MG PO (20:46)
[2020-07-16] MEDS ORDERED: METF500 PO (01:44)
[2020-07-16] MEDS ORDERED: MAGCIT300 PO (01:44)
[2020-07-16] MEDS ORDERED: ANORO ELLIPTA1 EACH INH (01:44)
== END 2020-07-15 16:49 | disposition home or self-care (01) | DRG 291 ==
LOC: ER 16:52 → MEDS 21:39
PROVIDERS: Internal Medicine; Student in an Organized Health Care Education/Training Program; ADMIT Internal Medicine
DX: I11.0 Hypertensive heart disease with heart failure (principal); J96.21 Acute and chronic respiratory failure with hypoxia; I50.43 Acute on chronic combined systolic (congestive) and diastolic (congestive) heart failure; I25.10 Atherosclerotic heart disease of native coronary artery without angina pectoris; E11.9 Type 2 diabetes mellitus without complications; E78.5 Hyperlipidemia, unspecified; E87.6 Hypokalemia; J44.9 Chronic obstructive pulmonary disease, unspecified; K22.70 Barrett's esophagus without dysplasia; D63.8 Anemia in other chronic diseases classified elsewhere; I25.5 Ischemic cardiomyopathy; I48.0 Paroxysmal atrial fibrillation; N40.0 Benign prostatic hyperplasia without lower urinary tract symptoms; Z99.81 Dependence on supplemental oxygen; Z95.5 Presence of coronary angioplasty implant and graft; Z87.891 Personal history of nicotine dependence; Z79.82 Long term (current) use of aspirin; Z79.84 Long term (current) use of oral hypoglycemic drugs; Z79.02 Long term (current) use of antithrombotics/antiplatelets; I25.2 Old myocardial infarction
CPT/HCPCS: 36415; 71045; 80048; 83735; 83880; 84484; 85025; 93005; 93010; 93308; 93321; 94640; 94760; 96372-59; 96374; 96376; 97110; 97116; 97161; 99285-25; A9270; J1650; J1940

== ENCOUNTER 2020-07-15 20:04 | Inpatient (IN) | payer MEDICARE, OTHER ==
[~2020-07-15] VITALS: Ht 185.4 cm; Wt 90.5 kg
[~2020-07-15 20:04] MED LIST changes: +ALBU90OI INH; +ANORO ELLIPTA1 EAC1 INH; +APHEN325 MG PO; +Aspirin EC81 MG PO; +BUMETANIDE2 MG PO; +FURO20 PO; +GABA300 PO; +LISI5 PO; +MAGCIT300 PO; +POTA10T PO
[2020-07-15 20:31] LABS: BASOPHILS ABSOLUTE AUTO 0.03 K/mm3 (0.00-0.23); BASOPHILS PERCENT AUTO 1 % (0-2); EOSINOPHILS ABSOLUTE AUTO 0.18 K/mm3 (0.00-0.68); EOSINOPHILS PERCENT AUTO 3 % (0-6); Hematocrit 35.4 % (37.0-53.0); Hemoglobin 10.9 g/dL (13.5-17.5); IMMATURE GRAN ABSOLUTE AUTO 0.02 K/mm3 (0.00-0.10); IMMATURE GRAN PERCENT AUTO 0 % (0-1); LYMPHOCYTES ABSOLUTE AUTO 0.72 K/mm3 (0.84-5.20); LYMPHOCYTES PERCENT AUTO 13 % (21-46); MONOCYTES ABSOLUTE AUTO 0.57 K/mm3 (0.16-1.47); MONOCYTES PERCENT AUTO 10 % (4-13); Mean Corpuscular HGB 29.1 pg (26.0-34.0); Mean Corpuscular HGB Conc 30.8 g/dL (31.5-36.5); Mean Corpuscular Volume 95 fL (80-100); NEUTROPHILS ABSOLUTE AUTO 4.24 K/mm3 (1.96-9.15); NEUTROPHILS PERCENT AUTO 74 % (41-73); Platelet Count 137 K/mm3 (150-400); RDW Coefficient Variation 15.9 % (11.7-14.2); RDW Standard Deviation 55.8 fL (35.1-46.3); Red Blood Cell Count 3.74 M/mm3 (4.30-5.90); White Blood Cell Count 5.76 K/mm3 (4.00-11.30)
[2020-07-15] MEDS ORDERED: Potassium Chlo20 ME1 PO (20:45)
[2020-07-15] MEDS ORDERED: FUROSEMIDE20 MG PO (20:46)
[2020-07-15] MEDS ORDERED: LISI5 PO (20:46)
[2020-07-15 21:00] LABS: Alanine Aminotransfer (ALT/SGP 22 U/L (12-78); Albumin, Blood 3.2 g/dL (3.4-5.0); Albumin/Globulin Ratio 0.8 (0.8-1.8); Alk Phos 109 U/L (50-136); Anion Gap 3 mmol/L (6-16); Aspartate Aminotrans (AST/SGOT 66 U/L (12-37); Bilirubin, Total 0.9 mg/dL (0.1-1.0); Blood Urea Nitrogen 24 mg/dL (8-24); Bun/Creatinine Ratio 25.8 (12.0-20.0); CO2, Blood 35 mmol/L (21-32); Calcium, Blood 8.7 mg/dL (8.5-10.1); Chloride, Blood 102 mmol/L (98-108); Creatinine, Blood 0.93 mg/dL (0.60-1.20); Globulin, Blood 3.8 g/dL (2.2-4.0); Glomerular Filtration Rate >60 (60-); Glucose, Blood 116 mg/dL (70-99); Potassium, Blood 3.6 mmol/L (3.5-5.5); Sodium, Blood 140 mmol/L (136-145); Troponin I 0.031 ng/mL (0.000-0.040)
--- NOTE | 2020-07-16 00:30 | NUR ---
PT ARRIVES TO ICU 15 PCU STATUS FOR SYMPTOMATIC BRADYCARDIA. PT IS NOTED IN AFIB WITH RATE IN THE 60S AT THIS TIME, DOES INTERMITTENTLY DECREASE TO 50S. WEEPING EDEMA IS NOTED TO BLE, MEPILEX PLACED. SON ARRIVES TO BEDSIDE WITH PT, STATES THAT HE HAS NOT TAKEN ANY MEDICATIONS SINCE AFTERNOON DISCHARGE. PT IS NOTED TO BE SLEEPING, SON REPORTS THAT PT HAS NOT BEEN SLEEPING WELL. DOES ROUSE AND STATE THAT HE IS IN THE HOSPITAL AFTER HAVING A FALL AT HOME. LUNGS ARE CLEAR BILAT UPPER HOWEVER CRACKLES ARE NOTED BILAT BASES, SATS MAINTAIN LOW 90S WITH OXYGEN VIA NASAL CANNULA AT 2 L/MIN, FAINT EXP WHEEZE IS INTERMITTENTLY NOTED. ON OBSERVING PT DURING SLEEP, IT IS NOTED THAT HE HAS PERIODS OF APNEA HOWEVER SATS DO MAINTAIN AT THIS TIME.
[2020-07-16] MEDS ORDERED: ANORO ELLIPTA1 EACH INH (01:44)
[2020-07-16] MEDS ORDERED: METF500 PO (01:44)
[2020-07-16] MEDS ORDERED: MAGCIT300 PO (01:44)
[2020-07-16 04:16] LABS: Anion Gap 3 mmol/L (6-16); Blood Urea Nitrogen 23 mg/dL (8-24); Bun/Creatinine Ratio 25.4 (12.0-20.0); CO2, Blood 35 mmol/L (21-32); Calcium, Blood 8.7 mg/dL (8.5-10.1); Chloride, Blood 102 mmol/L (98-108); Glomerular Filtration Rate >60 (60-); Glucose, Blood 111 mg/dL (70-99); Potassium, Blood 3.3 mmol/L (3.5-5.5); Sodium, Blood 140 mmol/L (136-145)
--- NOTE | 2020-07-16 07:15 | NUR ---
PT RESTS QUIETLY SINCE ADMIT, RATE CONTINUES 50-60S PRESSURES MAINTAINING. SATS MAINTAIN WITH OXYGEN VIA NASAL CANNULA, PERIODS OF APNEA CONTINUE. PT IS ALERT THIS AM AND HAS CALLED FOR ASSISTANCE APPROPRIATELY. BED ALARM REMAINS ARMED. PT STATES THIS AM THAT HE IS DOING WELL OTHER THAN DISAPPOINTED WITH READMISSION.
--- NOTE | 2020-07-16 08:17 | NUR ---
ASSUMED CARE RECEIVED REPORT FROM ADITHYA SOW. PT IS LYING IN BED, ALERT AND ORIENTED TO SELF, SITUATION, SURROUNDINGS, AND TIME. HE IS CURRENTLY INCONTINENT, WITH PULLUPS ON. DENIES CHEST PAIN AND SHORTNESS OF BREATH. 2L NC. SPO2 > 94%. WILL REEVALUATE NEED FOR OXYGEN. CALL LIGHT WITHIN REACH. BED LOW AND LOCKED.
[2020-07-16 14:42] LABS: Influenza A, PCR Negative (NEGATIVE); Influenza B, PCR Negative (NEGATIVE); Resp Syncytial Virus, PCR Negative (NEGATIVE); SARS-Cov-2 (COVID-19) PCR, MMC Negative (NEGATIVE)
--- NOTE | 2020-07-16 15:06 | NUR ---
ADMIT:07/16/20 DISCHARGE: DX: Bradycardia, fall, syncope CC:kwilcox SOLANGE CALL: PT AT HOME, RESIDENCE: Home with Alicia who has dementia CAREGIVER: self DX: Afib, COPD, Cardiomyopathy, DM-Type 2 DME: ADULT PULLUPS, 4-WHEEL WALKER, O2, DM SUPPLIES CCM: REFERRAL2019 HOME HEALTH: [facility]- 2019 SUMMARY: 07/16/20- per chart review with Dr. Lozano, he feels that pt problems may be related to his deconditioning. He would like to see what PT and OT have to say after they meet with pt. Est. ETA for d/c is Thursday. -kjw 1: Sinus bradycardia A/P: ? HR was in 30s, now better. - Not sure if b antwan dose was increased. Will d/c toprol for now and monitor. - tele 2: Chronic systolic (congestive) heart failure A/P: - continue diuresis - monitor bmp - strict i/os - fluid restriction of 1200 cc/day - cpap - potassium supplement. 3: chronic respiratory failure with hypoxia A/P: stable 4: Paroxysmal A-fib A/P: Resume home med regimen. 5: Diabetes A/P: Resume home med regimen.hold metformin. 6: HTN (hypertension) A/P: Resume home med regimen. SUMMARY: ADMIT: 07/12/20 07/15/20- PER DR. ROCHA, PT IS SET TO GO HOME TODAY. STOPPED BY AND REVIEWED [facility] LETTER WITH PT. HE STATED THAT HIS SON JAKI WILL BE COMING TO GET HIM AND TAKE HIM HOME. PT AND HIS SON ARE WORKING ON TRYING TO FIND AN ASSISTED LIVING FACILITY THAT BOTH PT AND CAN GO TO AND THAT WILL ACCEPT HIS WHO HAS DEMENTIA. SPOKE WITH FAMILY IN DETAIL ABOUT THEIR SITUATION. FAMILY IS AWARE THAT FOR THE PATIENT'S HEALTH AND HIS 'S THEY NEED TO BE IN AN ASSISTED LIVING FACILITY THAT CAN HELP WITH CARE NEEDS. YUNIOR RESOURCES GIVEN TO PT'S SON TO REVIEW. -GENOVEVA 02/12/20 DISCHARGED HOME, USE FRONT WHEEL WALKER, FULL WEIGHT BERRING, HOME HEALTH ORDERED AT DISCHARGE. HE NORMALLY HELPS WITH CARE. SAYS HE WILL ARRANGE CAREGIVER ASSISTANCE FOR HER. FOLLOW UP EFM 2 WEEKS.
--- NOTE | 2020-07-16 17:44 | NUR ---
Son wanted to discuss dischareg plan of care. Pt who has short term memory loss started the conversation about going to assisted living. Pt open to conversation but was not happy about it. at the end he said Im getting well and going. home. PT son very distraught and showing significant caregiver stress. Reviewed assisted living options that woudl help quality of life. Advised them to get advance directives, polst and poa. will update care managers. will speak aagin with the patient. Son fears for their safety and he needs to go back to his home for his own medical care.
--- NOTE | 2020-07-16 19:28 | NUR ---
SHIFT SUMMARY RAYA ARRIVED FROM ICU AROUND 330PM. WAS ON 2L AT TRANSFER, WAS IN THE HIGH 90S, TRIALED ON ROOM AIR, AND WAS FINE INITIALLY AT 95%. AT RT RECHECK, HE WAS AT 84%. PUT BACK ON OXYGEN. SWELLING IN BLE AND ABD AND FLANKS, ON 1.5L FLUID RESTRICTION. SON AND VISITED. TELE SHOWING AFIB IN 70S. TOOK MEDS PRESCRIBED, CALL LIGHT IN REACH, REPORT GIVEN TO NIGHT NURSE
--- NOTE | 2020-07-17 07:36 | NUR ---
07/17/20 0620 PT AWAKENED FOR AM MED. DENIES ANY DISCOMFORT THIS SHIFT. VOIED SEVERAL TIMES IN URINAL. REPOSITIONED SIDE TO SIDE BUT PT LATER TURNS HIMSELF TO SUPINE. O2 REMAINS AT 3LPM VIA N/C. NO DISTRESS NOTED. FLUID RESTRICTION IN EFFECT AND PT NOT HAPPY ABOUT IT EVEN WHEN EXPLAIN REASONS.
[2020-07-17 12:02] LABS: BASOPHILS ABSOLUTE AUTO 0.03 K/mm3 (0.00-0.23); BASOPHILS PERCENT AUTO 0 % (0-2); EOSINOPHILS ABSOLUTE AUTO 0.21 K/mm3 (0.00-0.68); EOSINOPHILS PERCENT AUTO 3 % (0-6); Hematocrit 36.3 % (37.0-53.0); Hemoglobin 11.4 g/dL (13.5-17.5); IMMATURE GRAN ABSOLUTE AUTO 0.02 K/mm3 (0.00-0.10); IMMATURE GRAN PERCENT AUTO 0 % (0-1); LYMPHOCYTES ABSOLUTE AUTO 0.68 K/mm3 (0.84-5.20); LYMPHOCYTES PERCENT AUTO 10 % (21-46); MONOCYTES ABSOLUTE AUTO 0.67 K/mm3 (0.16-1.47); MONOCYTES PERCENT AUTO 10 % (4-13); Mean Corpuscular HGB Conc 31.4 g/dL (31.5-36.5); Mean Corpuscular Volume 96 fL (80-100); Mean Platelet Volume 11.2 fL (9.1-12.4); NEUTROPHILS ABSOLUTE AUTO 5.46 K/mm3 (1.96-9.15); NEUTROPHILS PERCENT AUTO 77 % (41-73); Platelet Count 143 K/mm3 (150-400); RDW Coefficient Variation 16.1 % (11.7-14.2); RDW Standard Deviation 56.4 fL (35.1-46.3); White Blood Cell Count 7.07 K/mm3 (4.00-11.30)
[2020-07-17 12:19] LABS: Alanine Aminotransfer (ALT/SGP 30 U/L (12-78); Albumin, Blood 3.2 g/dL (3.4-5.0); Albumin/Globulin Ratio 0.7 (0.8-1.8); Alk Phos 125 U/L (50-136); Anion Gap 4 mmol/L (6-16); Aspartate Aminotrans (AST/SGOT 74 U/L (12-37); Blood Urea Nitrogen 30 mg/dL (8-24); Bun/Creatinine Ratio 32.1 (12.0-20.0); CO2, Blood 34 mmol/L (21-32); Chloride, Blood 100 mmol/L (98-108); Creatinine, Blood 0.93 mg/dL (0.60-1.20); Globulin, Blood 4.4 g/dL (2.2-4.0); Glomerular Filtration Rate >60 (60-); Glucose, Blood 142 mg/dL (70-99); Magnesium, Blood 1.9 mg/dL (1.6-2.4); Phosphorus, Blood 3.6 mg/dL (2.5-4.9); Sodium, Blood 138 mmol/L (136-145); Total Protein, Blood 7.6 g/dL (6.4-8.2)
--- NOTE | 2020-07-17 16:31 | NUR ---
Met with pt family and cytology laboratory manager to review needs, Review of home care and CHF care and daily weights and when to contact doctor, Review of advance directives, POLST, recussitation and levels of care. pt is a full code they will discuss with him the think he would not want cpr or life support. Pt fatigued and slept through most of conversation. The do not have POA or finnegan and reviewed fainacial security and strategies of legal documentation. Son is working towards assisted living for both of them. pt high risk for readmission or repeat falls will follow up with son for safety plan.
--- NOTE | 2020-07-17 19:14 | NUR ---
SHIFT SUMMARY RAYA DENIED PAIN THIS SHIFT. TELE SHOWING NSR. ON 3L OXYGEN. AND SON VISITED. BLE, FLANKS, AND PENILE FORESKIN VERY SWOLLEN, INFORMED DR LINDA OF PT'S FLUID OVERLOADED STATUS, DR LINDA SWITCHED LASIX TO IV. SBA TO BR WITH WALKER. YEAST RASH IN GROIN, MICONAZOLE APPLIED. 1.5 L FLUID RESTRICTION, PT CONSTANTLY ASKING FOR MORE FLUID. I EDUCATED ON IMPORTANCE AND REASONING FOR FLUID RESTRICTION. CALL LIGHT IN REACH, GAVE REPORT TO NIGHT NURSE
[2020-07-18 05:10] LABS: BASOPHILS ABSOLUTE AUTO 0.03 K/mm3 (0.00-0.23); BASOPHILS PERCENT AUTO 1 % (0-2); EOSINOPHILS ABSOLUTE AUTO 0.15 K/mm3 (0.00-0.68); EOSINOPHILS PERCENT AUTO 2 % (0-6); Hematocrit 36.6 % (37.0-53.0); Hemoglobin 11.2 g/dL (13.5-17.5); IMMATURE GRAN ABSOLUTE AUTO 0.02 K/mm3 (0.00-0.10); IMMATURE GRAN PERCENT AUTO 0 % (0-1); LYMPHOCYTES ABSOLUTE AUTO 0.75 K/mm3 (0.84-5.20); LYMPHOCYTES PERCENT AUTO 12 % (21-46); MONOCYTES ABSOLUTE AUTO 0.58 K/mm3 (0.16-1.47); MONOCYTES PERCENT AUTO 9 % (4-13); Mean Corpuscular HGB 28.8 pg (26.0-34.0); Mean Corpuscular HGB Conc 30.6 g/dL (31.5-36.5); Mean Corpuscular Volume 94 fL (80-100); Mean Platelet Volume 11.2 fL (9.1-12.4); NEUTROPHILS ABSOLUTE AUTO 4.64 K/mm3 (1.96-9.15); NEUTROPHILS PERCENT AUTO 75 % (41-73); Platelet Count 135 K/mm3 (150-400); RDW Standard Deviation 55.3 fL (35.1-46.3); Red Blood Cell Count 3.89 M/mm3 (4.30-5.90); White Blood Cell Count 6.17 K/mm3 (4.00-11.30)
[2020-07-18 05:27] LABS: Anion Gap 6 mmol/L (6-16); Blood Urea Nitrogen 30 mg/dL (8-24); Bun/Creatinine Ratio 37.4 (12.0-20.0); CO2, Blood 33 mmol/L (21-32); Calcium, Blood 8.5 mg/dL (8.5-10.1); Chloride, Blood 100 mmol/L (98-108); Glomerular Filtration Rate >60 (60-); Glucose, Blood 148 mg/dL (70-99); Phosphorus, Blood 3.7 mg/dL (2.5-4.9); Potassium, Blood 3.9 mmol/L (3.5-5.5); Sodium, Blood 139 mmol/L (136-145)
--- NOTE | 2020-07-18 07:28 | NUR ---
07/18/20 0615 POOR COMPLIANCE WITH FLUID RESTRICTION ORDERS. REMINDED HIM OF REASONS FOR RESTRICTIONS BUT SEEMS TO NOT FULLY UNDERSTAND. O2 REMAINS AT 3LPM VIA N/C. HEART MONITOR AND VITALS STABLE. UNEVENTFUL NIGHT.
--- NOTE | 2020-07-18 17:58 | NUR ---
PT BP 103/64 @ TIME OF AFTERNOON MEDS, 4 ML OF IV LASIX TO BE GIVEN WELL SPIRLACTOLONE. CALLED PROVIDER AND HE STATED TO HOLD THE IV LASIX AND GIVE 40 MG PO LASIX AND GIVE THE SPIRLACTOLONE.
[2020-07-18 18:13] LABS: Anion Gap 2 mmol/L (6-16); Blood Urea Nitrogen 28 mg/dL (8-24); Bun/Creatinine Ratio 33.4 (12.0-20.0); CO2, Blood 36 mmol/L (21-32); Calcium, Blood 8.9 mg/dL (8.5-10.1); Chloride, Blood 101 mmol/L (98-108); Creatinine, Blood 0.84 mg/dL (0.60-1.20); Glomerular Filtration Rate >60 (60-); Glucose, Blood 143 mg/dL (70-99); Potassium, Blood 4.1 mmol/L (3.5-5.5); Sodium, Blood 139 mmol/L (136-145)
--- NOTE | 2020-07-18 18:25 | NUR ---
SHIFT SUMMARY NO ACUTE CHANGES T/O SHIFT, CALM AND COOPERATIVE WITH CARE, A&Ox4. PT IS ON 3 L/MIN O2, THIS IS BASELINE FOR PT. PT IS TYPICALLY ON 3-6 L/MIN @ HOME. NO COMPLAINTS OF SOB, CHEST PAIN, GENERALIZED PAIN, OR DISTRESS T/O SHIFT. ON FLUID RESTRICTION, PT MANAGED TO REMAIN UNDER 1500 ML OF FLUIDS. COMPRESSION STOCKINGS APPLIED TODAY PER MD ORDERS. ALBUMIN ORDERED TO START THIS EVENING, CURRENTLY RUNNING. BLOOD SUGARS HAVE BEEN STABLE, NO COVERAGE INDICATED. PT HAS SWOLLEN SCROTUM AND PERIPHERAL EDEMA, ON DIURETICS. PT IS CURRENTLY SITTING UP IN CHAIR, WATCHING TV AND EATING DINNER. CALL LIGHT WITHIN REACH, CALLS APPROPRIATELY.
--- NOTE | 2020-07-19 04:11 | NUR ---
SHIFT SUMMARY ASSUMED CARE OF PT AT 1900. PT IS A/OX UBT FORGETFUL. HEART SOUNDS IRREGULAR, TELE SHOWS AFIB AVERAGING 80. PT HAD 8 BEAT RUN OF V-TACH AT 2000 WITH NO ACUTE SYMPTOMS. NOTIFIED HOSPITALIST WHO ORDERED MAGNESIUM LEVEL TO BE DRAWN THIS AM. PT WAS CONTIENT TO BATHROOM WITH 1P FWW ASSIST. NO OTHER EVENTS DURING THE NIGHT. PT SLEPT FOR A COUPLE HOURS DURING THE NIGHT.
[2020-07-19 04:35] LABS: BASOPHILS ABSOLUTE AUTO 0.03 K/mm3 (0.00-0.23); BASOPHILS PERCENT AUTO 1 % (0-2); EOSINOPHILS ABSOLUTE AUTO 0.15 K/mm3 (0.00-0.68); EOSINOPHILS PERCENT AUTO 3 % (0-6); Hematocrit 33.8 % (37.0-53.0); Hemoglobin 10.5 g/dL (13.5-17.5); IMMATURE GRAN ABSOLUTE AUTO 0.01 K/mm3 (0.00-0.10); IMMATURE GRAN PERCENT AUTO 0 % (0-1); LYMPHOCYTES ABSOLUTE AUTO 0.76 K/mm3 (0.84-5.20); LYMPHOCYTES PERCENT AUTO 14 % (21-46); MONOCYTES ABSOLUTE AUTO 0.54 K/mm3 (0.16-1.47); MONOCYTES PERCENT AUTO 10 % (4-13); Mean Corpuscular HGB 28.8 pg (26.0-34.0); Mean Corpuscular HGB Conc 31.1 g/dL (31.5-36.5); Mean Corpuscular Volume 93 fL (80-100); Mean Platelet Volume 11.3 fL (9.1-12.4); NEUTROPHILS ABSOLUTE AUTO 3.77 K/mm3 (1.96-9.15); NEUTROPHILS PERCENT AUTO 72 % (41-73); Platelet Count 137 K/mm3 (150-400); RDW Coefficient Variation 15.8 % (11.7-14.2); RDW Standard Deviation 54.4 fL (35.1-46.3); Red Blood Cell Count 3.64 M/mm3 (4.30-5.90); White Blood Cell Count 5.26 K/mm3 (4.00-11.30)
[2020-07-19 04:54] LABS: Anion Gap 4 mmol/L (6-16); Blood Urea Nitrogen 31 mg/dL (8-24); CO2, Blood 33 mmol/L (21-32); Calcium, Blood 8.7 mg/dL (8.5-10.1); Chloride, Blood 102 mmol/L (98-108); Creatinine, Blood 0.86 mg/dL (0.60-1.20); Glomerular Filtration Rate >60 (60-); Glucose, Blood 129 mg/dL (70-99); Potassium, Blood 4.4 mmol/L (3.5-5.5); Sodium, Blood 139 mmol/L (136-145)
--- NOTE | 2020-07-19 06:14 | NUR ---
CARDIAC MOITORING EVENT PT HAD ANOTHER 6 BEAT RUN OF V-TACH. WILL NOTIFY CHARGE NURSE AND NOTIFY DAYSHIFT NURSE.
--- NOTE | 2020-07-19 16:05 | NUR ---
[facility] PT HAD A 6 BEAT RUN OF VTACH AT 1554. PT WAS SITTING ON SIDE OF BED, RECEIVING A BREATHING TX AND TALKING WITH SON. NO SYMPTOMS. DR. LINDA WAS NOTIFIED OF THIS. NO NEW ORDERS AT THIS TIME.
[2020-07-19 17:45] LABS: Source, Urine Catheter
[2020-07-19 17:48] LABS: Appearance, Urine Clear (Clear); Bilirubin, Urine Neg (Neg); Blood, Urine Neg (Neg); Color, Urine Yellow (P-Yellow); Glucose Qualitative, Urine Neg (Neg); Ketones, Urine Neg (Neg); Leukocyte Esterase, Urine Neg (Neg); Nitrite, Urine Neg (Neg); Protein, Urine Neg (Neg); Specific Gravity, Urine 1.015 (1.003-1.022); Urobilinogen, Urine NORM (Normal); pH, Urine 6.5 (5.0-8.0)
--- NOTE | 2020-07-19 19:24 | NUR ---
SHIFT SUMMARY PT HAS HAD NO COMPLAINTS THIS SHIFT. PT HAD A CATHETER PLACED THIS EVENING FOR DUIRESING AND STRICT I/O. PT CONTINUES TO BE ON 2-3L OXYGEN VIA NC. PT HAS A GOOD APPETITE AND REQUESTING FLUIDS OFTEN. STAFF HAS BEEN EDUCATING PT ON IMPORTANCE OF FLUID RESTRICTION. NO ACUTE CHANGES AT THIS TIME. CALL LIGHT IN REACH. REPORT GIVEN TO SASHA HAJI.
--- NOTE | 2020-07-20 04:12 | NUR ---
SHIFT SUMMARY ASSUMED CARE OF PT AT 1900. PT IS A/OX3 WITH TIMES OF CONFUSION. HEART SOUNDS IRREGULAR, TELE SHOWS AFIB W/ BBB @ 95. LUNG SOUNDS ARE DIMINISHED, PT IS ON 2.5L NC BUT SOMETIMES IT IS OFF HIS FACE. PT SCROTUM IS STILL EDAMADOUS, POWDER APPLIED. PT WAS COMPLIANT WITH FLUID RESTRICTION THIS EVENING. NO ACUTE EVENTS DURING THE NIGHT. PT SLEPT MOST OF THE NIGHT. CALL LIGHT IN REACH, BED IN LOWEST POSITION, BED ALARM ON.
[2020-07-20 04:58] LABS: BASOPHILS ABSOLUTE AUTO 0.04 K/mm3 (0.00-0.23); BASOPHILS PERCENT AUTO 1 % (0-2); EOSINOPHILS ABSOLUTE AUTO 0.14 K/mm3 (0.00-0.68); EOSINOPHILS PERCENT AUTO 2 % (0-6); Hematocrit 34.7 % (37.0-53.0); Hemoglobin 10.8 g/dL (13.5-17.5); IMMATURE GRAN ABSOLUTE AUTO 0.02 K/mm3 (0.00-0.10); IMMATURE GRAN PERCENT AUTO 0 % (0-1); LYMPHOCYTES ABSOLUTE AUTO 0.97 K/mm3 (0.84-5.20); LYMPHOCYTES PERCENT AUTO 13 % (21-46); MONOCYTES ABSOLUTE AUTO 0.73 K/mm3 (0.16-1.47); MONOCYTES PERCENT AUTO 10 % (4-13); Mean Corpuscular HGB Conc 31.1 g/dL (31.5-36.5); Mean Corpuscular Volume 93 fL (80-100); Mean Platelet Volume 11.2 fL (9.1-12.4); NEUTROPHILS ABSOLUTE AUTO 5.54 K/mm3 (1.96-9.15); NEUTROPHILS PERCENT AUTO 75 % (41-73); Platelet Count 142 K/mm3 (150-400); RDW Standard Deviation 55.1 fL (35.1-46.3); Red Blood Cell Count 3.72 M/mm3 (4.30-5.90); White Blood Cell Count 7.44 K/mm3 (4.00-11.30)
[2020-07-20 05:14] LABS: Albumin, Blood 3.6 g/dL (3.4-5.0); Anion Gap 5 mmol/L (6-16); Blood Urea Nitrogen 31 mg/dL (8-24); Bun/Creatinine Ratio 32.3 (12.0-20.0); CO2, Blood 32 mmol/L (21-32); Calcium, Blood 8.9 mg/dL (8.5-10.1); Chloride, Blood 101 mmol/L (98-108); Creatinine, Blood 0.96 mg/dL (0.60-1.20); Glomerular Filtration Rate >60 (60-); Glucose, Blood 135 mg/dL (70-99); Phosphorus, Blood 3.3 mg/dL (2.5-4.9); Potassium, Blood 4.4 mmol/L (3.5-5.5); Sodium, Blood 138 mmol/L (136-145)
--- NOTE | 2020-07-20 11:46 | NUR ---
CARE COORDINATION REFERRAL - 2 OF 2 ADMIT:07/16/20 DISCHARGE: DX: BRADYCARDIA, FALL, SYNC[place] CC:KWILCOX [facility] CALL: PT AT HOME, RESIDENCE: HOME WITH JAVIER WHO HAS DEMENTIA CAREGIVER: SELF DX: AFIB, COPD, CARDIOMYOPATHY, DM-TYPE 2 DME: ADULT PULLUPS, 4-WHEEL WALKER, O2, DM SUPPLIES CCM: REFERRAL- 2019 HOME HEALTH: [facility]- 2019 SUMMARY: 07/20/20- PER CHART REVIEW, PT WILL BE D/C ONCE HE IS ADEQUATELY DIURESED. HE NOW HAS ANASARCA. EST. ETA FOR D/C IS THURSDAY, SOLANGE HAS BEEN COMPLETED WITH SON AND PT. -GENOVEVA
--- NOTE | 2020-07-20 13:18 | NUR ---
07/20/20-Attempted to call pt's son to discuss his d/c plan. Is pt going home or is he going to [facility]. LMOM to return call.-gigi
--- NOTE | 2020-07-20 18:19 | NUR ---
SHIFT SUMMARY PT IS AOX3; DOES NOT CALL OR USE CALL LIGHTS- ENCOURAGED THE PT TO USE CALL LIGHT WHEN GETTING UP. PT IS 1P ASSIST. PT 24 HR URINE COLLECTION SENT AT 1800. PT FAMILY AT BEDSIDE TODAY AND DISCUSSED CONCERNS WITH THE DR. PLAN IS TO GO HOME WITH HOMEHEALTH ON THURSDAY. PT DENIES PAIN OR CHEST PAIN. PT HAD RUNS OF VTACH OF 14 BEATS- DR AWARE AND PT ASYMPTOMATIC. PT TRIED TO PULL RODRIGUEZ CATH MANY TIMES THIS AM- REMINDED THE PT THAT STRICT I&O IS IMPORTANT PER DR ORDER. CALLED THE DR- WILL KEEP THE RODRIGUEZ FOR STRICT I&O'S. BED ALARM IS ON AND CALL LIGHT WITHIN REACH.
[2020-07-20 18:28] LABS: Protein, Urine Quantitative 103.9 mg/dL (0.0-11.9)
--- NOTE | 2020-07-20 21:38 | NUR ---
ASSUMED CARE. AOX3, BUT THEIR IS SOME CONFUSION WHEN HOLDING CONVERSATION. ALMOST LIKE HE DID NOT KNOW WHAT i WAS ASKING, HAD TO REPEAT A COUPLE OF TIMES. DENIES PAIN OR DISCOMFORT. LUNGS CLEAR BUT DIMINISHED. HR IRREGULAR RUNNING AFIB ON TELE. VS WNL. SWELLING IN THE GROIN AND BLE, ELEVATED ON PILLOWS, AND FOOT OF BED RAISED. SWALLOWED PILLS WITH NO PROBLEMS. [place]. RESTING IN BED, DENIED ANY NEEDS OR CONCERNS. CALL LIGHT IS IN REACH.
[2020-07-21 05:24] LABS: Hematocrit 33.4 % (37.0-53.0); Hemoglobin 10.5 g/dL (13.5-17.5)
[2020-07-21 05:49] LABS: Albumin, Blood 3.2 g/dL (3.4-5.0); Anion Gap 5 mmol/L (6-16); Blood Urea Nitrogen 30 mg/dL (8-24); Bun/Creatinine Ratio 35.5 (12.0-20.0); CO2, Blood 33 mmol/L (21-32); Chloride, Blood 100 mmol/L (98-108); Creatinine, Blood 0.85 mg/dL (0.60-1.20); Glomerular Filtration Rate >60 (60-); Glucose, Blood 120 mg/dL (70-99); Magnesium, Blood 1.9 mg/dL (1.6-2.4); Phosphorus, Blood 3.3 mg/dL (2.5-4.9); Potassium, Blood 4.2 mmol/L (3.5-5.5); Sodium, Blood 138 mmol/L (136-145)
--- NOTE | 2020-07-21 05:58 | NUR ---
SHIFT SUMMARY: AOX3, OCCATIONAL CONFUSION THAT COMES AND GOES. VS WNL EXCEPT ONE BP DOWN TO 93/70 THIS AM. 24 HR URINE RESULTS SHOWED TOTAL PROTEIN AT 103.9 AND URINE PROTEIN CALCULATED AT 3117. URINE IS VERY TEA COLOR W/ SEDIMENT. TENDS TO PULL ON CATHETER. EDEMA BLE, UP TO GROIN AREA 2-3+. TELE RUNNING AFIB IN THE 70'S. OXYGEN AT 4 LITERS WITH SATS >90%. FR REMAINS IN PLACE, HE STAYED UNDER THE 1500CC A DAY. THIS SHIFT 680 INTAKE, 980 OUTPUT. SLEPT OFF AND ON THIS SHIFT, GOOD APPETITE, LIKES TO MUNCH ALOT. CALL LIGHT REMAINED IN REACH. NO OTHER CHANGES TO REPORT.
--- NOTE | 2020-07-21 19:39 | NUR ---
SHIFT SUMMARY: NO ACUTE CHANGES TO REPORT THIS SHIFT. PT A&O; OCC CONFUSION; [place]; CALM AND COOPERATIVE WITH CARE. RODRIGUEZ IN FOR STRICT I&O; TEA-COLORED URINE; 24-HOUR URINE CONTINUING. DR MURPHY FOLLOWING; DIURETICS CONTINUING. REPORT GIVEN TO ONCOMING RN.
--- NOTE | 2020-07-22 04:37 | NUR ---
NIGHT COURT MAGISTRATE SUMMARY PT A&OX3, FORGETFUL AT TIMES, [place], ABLE TO MAKE NEEDS KNOWN. PLEASANT AND COOPERATIVE TO CARE. NO C/O PAIN OR ANY DISCOMFORT THIS SHIFT. NO C/O CP, SOB OR N&V. PT CONT ON O2 3LPM VIA NC. SAT >90%. RESP EVEN AND UNLABORED. RODRIGUEZ CATH PATENT AND CONT TO DRAIN TEA COLORED URINE, 24HR URINE COLLECTION ONGOING. PT DENIES DYSURIA. PT ALSO ON 15OO FLUID RESTRICTION. TELE AT AFIB IN 80's. PT CALM AND RESTED IN BED AT THIS TIME. BED AT LOWEST POSITION W/ ALARM ON, CALL LIGHT WITHIN REACH.
[2020-07-22 05:18] LABS: Hematocrit 32.3 % (37.0-53.0); Hemoglobin 10.4 g/dL (13.5-17.5)
[2020-07-22 05:32] LABS: Albumin, Blood 3.3 g/dL (3.4-5.0); Anion Gap 5 mmol/L (6-16); Blood Urea Nitrogen 32 mg/dL (8-24); CO2, Blood 36 mmol/L (21-32); Calcium, Blood 9.1 mg/dL (8.5-10.1); Chloride, Blood 96 mmol/L (98-108); Creatinine, Blood 0.97 mg/dL (0.60-1.20); Glomerular Filtration Rate >60 (60-); Glucose, Blood 124 mg/dL (70-99); Phosphorus, Blood 3.9 mg/dL (2.5-4.9); Potassium, Blood 4.1 mmol/L (3.5-5.5); Sodium, Blood 137 mmol/L (136-145)
--- NOTE | 2020-07-22 14:12 | NUR ---
SUMMARY: 07/22/20- PER CHART REVIEW WITH DR. LANE, PT COULD POTENTIALLY BE D/C TOMORROW () AND GO HOME WITH HOME HEALTH WITH [facility]. PT IS STILL BEING DIURESED. WILL ALSO TRY AND REACH OUT TO CARDIOLOGY FOR A CARDIAC LIFE VEST DUE TO ARRHYTHIAS. EST. ETA FOR D/C IS THURSDAY. -GENOVEVA
--- NOTE | 2020-07-22 19:23 | NUR ---
SHIFT SUMMARY: NO ACUTE CHANGES TO REPORT THIS SHIFT. PT A&O; OCC CONFUSION; [place]; CALM AND COOPERATIVE WITH CARE. NO C/O PAIN THIS SHIFT. 24-HOUR URINE COLLECTION COMPLETED. DIURETICS CONTINUING. REPORT GIVEN TO ONCOMING RN.
[2020-07-23 04:52] LABS: Hematocrit 33.1 % (37.0-53.0); Hemoglobin 10.5 g/dL (13.5-17.5)
--- NOTE | 2020-07-23 05:03 | NUR ---
CHARTING CLERK SUMMARY PT A%OX3, [place] AND FORGETFUL AT TIMES, ABLE TO MAKE NEEDS KNOWN. PLEASANT AND COOPERATIVE TO CARE. NO C/O PAIN OR ANY DISCOMFORT. DENIES CP, SOB, OR N&V. PT CALM AND RESTED IN BED T/O SHIFT. BED AT LOWEST POSITION, CALL LIGHT WITHIN REACH.
[2020-07-23 05:13] LABS: Albumin, Blood 3.2 g/dL (3.4-5.0); Anion Gap 5 mmol/L (6-16); Blood Urea Nitrogen 37 mg/dL (8-24); CO2, Blood 36 mmol/L (21-32); Calcium, Blood 9.1 mg/dL (8.5-10.1); Chloride, Blood 92 mmol/L (98-108); Creatinine, Blood 0.97 mg/dL (0.60-1.20); Glomerular Filtration Rate >60 (60-); Glucose, Blood 160 mg/dL (70-99); Phosphorus, Blood 4.4 mg/dL (2.5-4.9); Potassium, Blood 4.1 mmol/L (3.5-5.5); Sodium, Blood 133 mmol/L (136-145)
[2020-07-23 08:08] LABS: HBSAG SCREEN Negative (Negative); HEP A AB, IGM Negative (Negative); HEP B CORE AB, IGM Negative (Negative); HEP C VIRUS AB <0.1 (0.0-0.9)
--- NOTE | 2020-07-23 10:38 | NUR ---
CALLED AND SPOKE WITH [facility] REGARDING LIFEVEST ORDER, PER HEART CENTER THEY NO LONGER DO LIFEVESTS AN INPATIENT THROUGH THE HEART CENTER. THEY DO HAVE AN ORDER FOR A ZIO PATCH FOR THIS PT PRIOR TO DISCHARGE. SHE REPORTS LIFEVEST ARE PLACED IN THE CARDIOLOGY CLINICAL NURSE SPECIALIST OFFICE AN OUTPATIENT OR COULD ATTEMPT TO CALL THE OFFICE AND SEE IF THEY WILL APPLY PRIOR TO DISCHARGE. DR MCGRATH NOTIFIED OF THIS.
--- NOTE | 2020-07-23 15:25 | NUR ---
[facility] Care visit Follow up visit made at request of [facility] staff to discuss code status and complete a POLST if pt would like to. Pt agreeable to my visit and this conversation. He is known to me as a previousl Cardiac rehab pt after his valve surgery many years ago. He does not remember attending cardiac rehab and has some word finding issues but he is otherwise alert and oriented to person, place, time, situation and seems very capable of medical decision making or expressing his wishes. He was sitting at the side of the bed and leaning back with fatigue at times. We talked about his current care and plan of care, dc planning and his wishes re: advanced care planning or emergency intervention. Pt was very thoughtful and very certain of his choices. He does not want CPR if he is found without a pulse. He does not want ventilation if in resp failure but would be willing to try CPAP, Bipap, airvo for an acute illness or short duration of a number of days to recover. He does not want dialysis if needed. He does not want artificial nutrition if he cannot swallow or consume enough nutrition/hydration orally to sustain himself. We documented all of this in his POLST and called his son and to review and answer questions. Family is supportive of his wishes. Called [facility] staff to provide POLST and VO obtained for code status change to reflect pt's wishes. Pt is hoping his steel inspector will not feel he needs the life vest or an AICD in follow up. He knows his son and are working on assisted living placement and verbalizes he is not physically able to care for his with mobility and health problems anymore. [facility] admitting coordinator is working with pt and family on dc options and follow up care. POLST sent to medical records once signed by Dr. Rogers to be given original and copy placed on his chart by Jesica of [facility]. Plan to f/u for support as indicated.
--- NOTE | 2020-07-23 16:44 | NUR ---
permission to provide care student nurse taniya juan recieved permission to provide care on 07/23/20
--- NOTE | 2020-07-23 16:46 | NUR ---
SUMMARY: 07/23/20- MET WITH PT TODAY PRIOR TO MEETING WITH SON AND . PT SIGNED POLST FORM AND HAS CHANGED HIS STATUS TO DNR. POLST WAS GIVEN TO PT TO HAVE IN HIS HOME. PT SHARED THAT HE AND HIS FAMILY HAVE A PLAN IN PLACE OF MOVING INTO ASSISTED LIVING, HAVING AN ESTATE SALE AND SELLING THEIR HOME. PT IS OK WITH THIS PLAN. MET WITH SON AND WITH PT. DISCUSSED THE D/C PLAN FOR PT. SON STATES THAT HE WILL BE ABLE TO CARE FOR PT UNTIL THEY FINISH THE PROCESS WITH LEONID[facility]. WHILE IN THE ROOM, [facility] CALLED THE SON ASKING IF THEY COULD COME TO THE HOSPITAL TOMORROW EARLY AFTERNOON TO MEET PT AND TO ASSESS WHAT TYPE OF CARE THEY WILL NEED AT THEIR FACILITY. WILL ENSURE PT'S DISCHARGE WILL BE AFTER THIS MEETING. NO FURTHER NEEDS AT THIS TIME. -GENOVEVA
--- NOTE | 2020-07-23 16:57 | NUR ---
SHIFT SUMMARY- PT A/OX3, FORGETFUL AT TIMES. PT DENIES ANY COMPLAINTS T/O THE DAY. LS DIMINISHED ON 3L WHICH IS HIS HOME BASELINE. SOB WITH EXERTION. OCCASIONAL NPC NOTED. 1+ BLE EDEMA AND SCROTAL SWELLING, PT REPORTS HAS IMPROVED. TELE AFIB AT 80. PT DIUESING WELL. RODRIGUEZ IN PLACE, PT CONTINUES TO REFUSE FOR RODRIGUEZ TO BE DC'D WITH INCREASE IN DIURETICS. PT UP TO CHAIR WITH 1 ASSIST. POSS D/C HOME TOMORROW WITH HH. PT NEEDING LIFEVEST VS ZIO PATCH PRIOR TO DISCHARGE. PALLIATIVE CARE SPOKE WITH PT REGARDING POLST, PT CHANGED TO DNR. NO OTHER ACUTE CHANGES THIS SHIFT.
[2020-07-24 04:41] LABS: Hematocrit 33.9 % (37.0-53.0); Hemoglobin 10.9 g/dL (13.5-17.5)
[2020-07-24 05:04] LABS: Albumin, Blood 3.4 g/dL (3.4-5.0); Anion Gap 7 mmol/L (6-16); Blood Urea Nitrogen 37 mg/dL (8-24); Bun/Creatinine Ratio 38.9 (12.0-20.0); CO2, Blood 39 mmol/L (21-32); Calcium, Blood 9.2 mg/dL (8.5-10.1); Chloride, Blood 88 mmol/L (98-108); Creatinine, Blood 0.95 mg/dL (0.60-1.20); Glomerular Filtration Rate >60 (60-); Glucose, Blood 132 mg/dL (70-99); Phosphorus, Blood 3.9 mg/dL (2.5-4.9); Potassium, Blood 3.8 mmol/L (3.5-5.5); Sodium, Blood 134 mmol/L (136-145)
--- NOTE | 2020-07-24 13:08 | NUR ---
[facility] IN TO EVALUATE PT.
--- NOTE | 2020-07-24 13:32 | NUR ---
Attempted follow up visit earlier. Pt meeting with [facility] staff for eval.
[2020-07-24] MEDS ORDERED: BUME2 PO (14:31)
[2020-07-24] MEDS ORDERED: MIRALAX17 GM PO (14:31)
[2020-07-24] MEDS ORDERED: METO5 PO (14:32)
[2020-07-24] MEDS ORDERED: SPIR25 PO (14:33)
[2020-07-24] MEDS ORDERED: ANTIFUNGAL POWD71 GM TOP (14:33)
--- NOTE | 2020-07-24 14:43 | NUR ---
SUMMARY: 07/24/20- PT TO BE D/C TODAY HOME WITH SON AND . SPOKE WITH PT AND SON ABOUT [facility] AND THEY ACKNOWLEDGED UNDERSTANDING. PT HAS APPT WITH [facility] ON AT 1100 AND WILL NEED TO FOLLOW UP WITH CARDIOLOGY IN 3-4 WEEKS. PT AND MET WITH NURSE FROM [facility] TO DETERMINE THEIR LEVEL OF NEEDS FOR WHEN THEY MOVE INTO THE FACILITY. NOTIFIED NURSE THAT PT HAS ASKED TO HAVE PHARMACY CHANGED TO [facility] AND TO REQUESTED MEDICATIONS TO BE PACKAGED AND DELIVERED FOR EASE OF PT. SPOKE WITH PT ABOUT LIFEVEST THROUGH CARDIOLOGY, HE DECLINED THIS BUT AGREEABLE TO HAVING ZIO PATCH. -GENOVEVA
[2020-07-24 15:12] LABS: ALBUMIN 3.4 g/dL (2.9-4.4); ALPHA-1-GLOBULIN 0.2 g/dL (0.0-0.4); ALPHA-2-GLOBULIN 0.7 g/dL (0.4-1.0); BETA GLOBULIN 1.2 g/dL (0.7-1.3); GAMMA GLOBULIN 1.4 g/dL (0.4-1.8); GLOBULIN, TOTAL 3.5 g/dL (2.2-3.9); IMMUNOGLOBULIN A, QN, SERUM 118 mg/dL (61-437); IMMUNOGLOBULIN G, QN, SERUM 1260 mg/dL (603-1613); IMMUNOGLOBULIN M, QN, SERUM 30 mg/dL (15-143); M-SPIKE Not Observed g/dL (Not Observed); PROTEIN, TOTAL, SERUM 6.9 g/dL (6.0-8.5)
--- NOTE | 2020-07-24 15:46 | NUR ---
INCREASED SOB- PT HAD BEEN UP SITTING WITH SPOUSE AND SON AND VISITING WITH [facility] ASSISTED LIVING RN FOR EVALUATION. IV HAD BEEN DC'D AND TELE REMOVED DUE TO DISCHARGE ORDERS PREVIOUSLY RECEIVED. WENT BACK IN TO TALK WITH SON AND CHECK ON PT TO GET READY FOR A BATH FOR ZIO PATCH PLACEMENT. PT NOTED TO BE SHAKING SITTING UP IN BED. PT NOT REPSONSIVE PREVIOUSLY THIS AM, PT UP IN CHAIR TALKING TO STAFF THIS AM. PT OPENS EYES TO VERBAL STIMULI BUT SLOW TO RESPOND. PT CONFUSED AND DOES NOT ANSWER QUESTIOSN APROPRIATELY. PT NOTED TO BE WITH INCREASED SOB, DRY NPC. VSS. SATS 100% ON 3L N/C WHICH IS PT BASELINE. SON BACK AT BEDSIDE AND CONCERNED WITH PT GOING HOME AND STATES HE IS MUCH WORSE THEN YESTERDAY. LS DIMINISHED WITH WHEEZES, BREATHING TX GIVEN BY RT. CALLED AND SPOKE WITH DR MCGRATH WHO CAME UP AND EVALUATED PT AND SPOKE WITH SON. STAT CHEST XRAY, HEAD CT, BLOOD CULTURES, CBC, AND CMP ORDERED AT THIS TIME. DISCHARGE PLACED ON HOLD A TTHIS TIME. WILL REPLACE IV AND TELEMETRY. WILL CONT TO MONITOR.
[2020-07-24 16:39] LABS: BASOPHILS ABSOLUTE AUTO 0.02 K/mm3 (0.00-0.23); BASOPHILS PERCENT AUTO 0 % (0-2); EOSINOPHILS ABSOLUTE AUTO 0.04 K/mm3 (0.00-0.68); EOSINOPHILS PERCENT AUTO 0 % (0-6); Hematocrit 36.9 % (37.0-53.0); IMMATURE GRAN ABSOLUTE AUTO 0.03 K/mm3 (0.00-0.10); IMMATURE GRAN PERCENT AUTO 0 % (0-1); LYMPHOCYTES PERCENT AUTO 4 % (21-46); MONOCYTES ABSOLUTE AUTO 0.92 K/mm3 (0.16-1.47); MONOCYTES PERCENT AUTO 9 % (4-13); Mean Corpuscular HGB 29.4 pg (26.0-34.0); Mean Corpuscular HGB Conc 32.5 g/dL (31.5-36.5); Mean Corpuscular Volume 90 fL (80-100); Mean Platelet Volume 11.1 fL (9.1-12.4); NEUTROPHILS ABSOLUTE AUTO 9.18 K/mm3 (1.96-9.15); NEUTROPHILS PERCENT AUTO 87 % (41-73); Platelet Count 160 K/mm3 (150-400); RDW Coefficient Variation 15.4 % (11.7-14.2); RDW Standard Deviation 50.9 fL (35.1-46.3); Red Blood Cell Count 4.08 M/mm3 (4.30-5.90); White Blood Cell Count 10.59 K/mm3 (4.00-11.30)
--- NOTE | 2020-07-24 16:51 | NUR ---
SHIFT SUMMARY- PT A/OX3 THIS AM, UP WITH 1 ASSIST IN THE ROOM. PT DENIES ANY COMPLAINTS THIS AM. LS CLEAR/ DIMINISHED ON THE BASES ON 3L N/C. TELE AFIB AT 73. 1+ BLE EDEMA WITH SCROTAL/PENIS EDEMA. PT RECEIVED DISCHARGE ORDERS THIS AFTERNOON AND SON AND SPOUSE IN TO SEE PT WELL EVALUATION BY LEONID[facility]. AFTER IV DC'D AND TELE DC'D BUT NOTED TO BE INCREASED WEAKNESS, NOT RESPONSIVE PREVIOUSLY. PT SHAKING AND NOTED TO HAVE INCREASED WORK OF BREATHING. AUDIBLE WHEEZES NOTED, 100% ON 3L N/C. PT MORE CONFUSED AND NOT ANSWERING QUESTIONS APROPRIATELY. DR MCGRATH IN TO SEE PT AND LABS DRAWN WELL STAT CHEST XRAY AND CT SCAN. IV REPLACED, TELE REPLACED AND RODRIGUEZ KEPT IN PLACE AT THIS TIME PER DR MCGRATH. SON AT BEDSIDE AT THIS TIME. TELE AFIB AT 113. WILL CONTINUE TO MONITOR, AWAITING TESTS RESULTS AT THIS TIME.
[2020-07-24 18:04] LABS: Alanine Aminotransfer (ALT/SGP 35 U/L (12-78); Albumin, Blood 3.6 g/dL (3.4-5.0); Albumin/Globulin Ratio 0.8 (0.8-1.8); Alk Phos 157 U/L (50-136); Anion Gap 5 mmol/L (6-16); Aspartate Aminotrans (AST/SGOT 81 U/L (12-37); Bilirubin, Total 1.2 mg/dL (0.1-1.0); Blood Urea Nitrogen 40 mg/dL (8-24); Bun/Creatinine Ratio 41.3 (12.0-20.0); CO2, Blood 39 mmol/L (21-32); Calcium, Blood 9.2 mg/dL (8.5-10.1); Chloride, Blood 87 mmol/L (98-108); Creatinine, Blood 0.97 mg/dL (0.60-1.20); Globulin, Blood 4.6 g/dL (2.2-4.0); Glomerular Filtration Rate >60 (60-); Glucose, Blood 160 mg/dL (70-99); Potassium, Blood 4.1 mmol/L (3.5-5.5); Sodium, Blood 131 mmol/L (136-145); Total Protein, Blood 8.2 g/dL (6.4-8.2)
[2020-07-24 18:11] LABS: Source, Urine Catheter
--- NOTE | 2020-07-24 18:11 | NUR ---
DR MCGRATH BACK TO SEE PT. FAMILY REQUESTING COVID TEST, RAPID COVID SENT. PER DR MCGRATH 250ML NS BOLUS. HOLD BUMEX FOR NOW, NO NEED TO NOTIFY DR MURPHY AT THIS POINT OF PT NOT BEING DISCHARGED. TYLENOL SUPPOSITORY ORDERED AND GIVEN. URINALYSIS SENT. PT CONTINUOUSLY PULLING OFF TELE WHILE STAFF AND FAMILY AT BEDSIDE, PER DR MCGRATH OK FOR WRIST RESTRAINTS. SOFT WRIST RESTRAINTS PLACED. ORDERS RECEIVED TO TRANSFER TO PCU. AWAITING BED AT THIS TIME. SON REMAINS AT BEDSIDE.
[2020-07-24 18:17] LABS: Appearance, Urine Clear (Clear); Bilirubin, Urine Neg (Neg); Blood, Urine 4+ (Neg); Color, Urine Yellow (P-Yellow); Glucose Qualitative, Urine Neg (Neg); Ketones, Urine Neg (Neg); Leukocyte Esterase, Urine 3+ (Neg); Nitrite, Urine Pos (Neg); Protein, Urine 2+ (Neg); Urobilinogen, Urine NORM (Normal)
--- NOTE | 2020-07-24 18:19 | NUR ---
DR MCGRATH NOTIFIED OF ELEVATED D-DIMER OF 5.93 WELL LACTIC ACID OF 2.1. PER DR MCGRATH SHE WILL PLACE ORDERS.
[2020-07-24 18:48] LABS: Squamous Epithelial Cells Not Seen /hpf (Few)
[2020-07-24 18:49] LABS: Bacteria Many /hpf
[2020-07-24 19:00] LABS: Influenza A, PCR Negative (NEGATIVE); Influenza B, PCR Negative (NEGATIVE); Resp Syncytial Virus, PCR Negative (NEGATIVE); SARS-Cov-2 (COVID-19) PCR, MMC Negative (NEGATIVE)
--- NOTE | 2020-07-24 19:41 | NUR ---
PCU TRANSFER- PT TO IMPAGING FOR CT THEN TO PCU 10. BEDSIDE REPORT TO PCU NIGHT RN. SON AT BEDSIDE. COVID TEST NEGATIVE. SPOKE WITH DR MURPHY IN THE HALLS WHO DC'D SPIRONOLACTONE, METOLOZONE AND BUMEX AT THIS TIME.
[2020-07-25 04:19] LABS: Hematocrit 34.6 % (37.0-53.0); Hemoglobin 11.2 g/dL (13.5-17.5)
[2020-07-25 04:42] LABS: Albumin, Blood 3.4 g/dL (3.4-5.0); Anion Gap 7 mmol/L (6-16); Blood Urea Nitrogen 37 mg/dL (8-24); Bun/Creatinine Ratio 35.9 (12.0-20.0); CO2, Blood 39 mmol/L (21-32); Calcium, Blood 9.5 mg/dL (8.5-10.1); Chloride, Blood 88 mmol/L (98-108); Creatinine, Blood 1.03 mg/dL (0.60-1.20); Glomerular Filtration Rate >60 (60-); Glucose, Blood 152 mg/dL (70-99); Magnesium, Blood 1.9 mg/dL (1.6-2.4); Phosphorus, Blood 3.6 mg/dL (2.5-4.9); Potassium, Blood 3.8 mmol/L (3.5-5.5); Sodium, Blood 134 mmol/L (136-145)
--- NOTE | 2020-07-25 05:34 | NUR ---
MANAGER DATABASE ADMINISTRATION SUMMARY PT ARRIVED FROM MEDICAL FLOOR DISORIENTED BUT NOT PULLING AT HIS LINES SO RESTRAINTS DC'D. PT HAS REMAINED AFEBRILE AND BP WNL. O2 SATS MAINTAINED >92 ON 3L VIA NC. PT AWAKE ENOUGH TO TAKE PO MEDICATIONS W APPLESAUCE. PT IS AX[place] X1 HE DOES NOT KNOW WHERE HE IS AND HE DOES NOT KNOW WHY HE IS NOT AT HIS HOME. PT HAD 1 LARGE BM. PT HAS SLEPT FOR MOST OF THE SHIFT W CALL LIGHT WITHIN REACH, WCTM.
--- NOTE | 2020-07-25 07:52 | NUR ---
ASSUMED CARE FROM NOC RN PT WAS AWAKE AND PARTICIPATED IN MORNING REPORT. PT IS [place] BUT WAS ABLE TO FOLLOW DIRECTIONS TO REMAIN IN BED WHEN HE WAS BEGINNING TO MOVE TO THE EDGE OF THE BED TO SIT UP. PT IS IN AFIB AND HAS SUSTAINED HR 80s-90s THIS MORNING. PT ON 3L O2 VIA NC WHICH IS HIS HOME BASELINE. PT HAS BED ALARM ON. PT IS FLUID RESTRICTION. ACCORDING TO NOC REPORT, PT IS TO DISCHARGE WITH A ZIO PATCH. RODRIGUEZ PATENT AND DRAINING, VS STABLE
[2020-07-25 08:10] LABS: ANTIGLOMERULAR BM AB 4 units (0-20)
--- NOTE | 2020-07-25 12:04 | NUR ---
SUMMARY: 07/25/20- per pt's chart and chart review with Dr Spicer, pt's d/c yesterday was stopped due to pt becoming confused, cook in color and septic with UTI. Attempted to see the pt today but he was asleep. Dr. Spicer is planning on contacting the son to discusss pt's care further. No est ETA for d/c at this time. -gigi
[2020-07-25 13:11] LABS: ANA DIRECT Negative (Negative); ANTIMYELOPEROXIDASE (MPO) ABS <9.0 U/mL (0.0-9.0); ANTIPROTEINASE 3 (PR-3) ABS <3.5 U/mL (0.0-3.5); ATYPICAL PANCA <1:20 titer (Neg:<1:20); CYTOPLASMIC (C-ANCA) <1:20 titer (Neg:<1:20); PERINUCLEAR (P-ANCA) <1:20 titer (Neg:<1:20)
--- NOTE | 2020-07-25 18:50 | NUR ---
SHIFT SUMMARY, IN HOUSE TRANSFER TO MEDICAL FLOOR PT WAS VERY LETHARGIC THROUGHOUT THE DAY. PT WAS NOT ABLE TO WORK WITH OT/PT TODAY AND WAS NOT AWAKE ENOUGH TO VISIT WITH FAMILY OR THE DOCTOR. PT WAS AROUSABLE LATE THIS MORNING AND ABLE TO TAKE HIS MEDS IN APPLESAUCE. PT IS ON A FLUID RESTRICTION. VS STABLE; PT ON 3L O2 WHICH IS HIS BASELINE AT HOME VIA NC. PT RECEIVED A BED BATH TODAY AND FREQUENT REPOSITIONING. PT WAS GIVEN HEEL MEPILEX FOR PROTECTION AND A REDDEND AREA ON THE RIGHT HEEL. AROUND DINNER TIME PT WAS AWAKE AND ABLE TO TALK WITH STAFF MORE SO THAN EARLIER TODAY. PT WAS AWAKE ENOUGH TO CONSUME DINNER. PT WAS NOT ABLE TO TELL ME WHERE HE IS OR WHY BUT WAS REORIENTED BY THIS RN. REPORT WAS GIVEN TO ADITHYA FITZGERALD AND PT WAS TRANSFERRED TO MEDICAL FLOOR AT APPROXIMATELY 1840
--- NOTE | 2020-07-26 03:47 | NUR ---
ROD GREASER SUMMARY PT A&OX3, PT IS [place], FORGETFUL AND PLEASANTLY CONFUSED AT TIMES. COOPERATIVE TO ALL CARES. NO C/O ANY PAIN OR DISCOMFORT THIS SHIFT. DENIES CP, SOB, OR N&V. PT ON O2 3LPM VIA NC, SAT >90%. PT CONT ON 1500 FLUID RESTRICTION. RODRIGUEZ CATH PATENT AND DRAINING SEVERINO URINE. NO C/O DYSURIA. PT CALM AND RESTED IN BED T/O SHIFT, BED AT LOWEST POSITION W/ ALARM ON. CALL LIGHT WITHIN REACH.
[2020-07-26 05:06] LABS: Hematocrit 34.3 % (37.0-53.0); Hemoglobin 10.9 g/dL (13.5-17.5)
[2020-07-26 05:25] LABS: Albumin, Blood 3.1 g/dL (3.4-5.0); Anion Gap 8 mmol/L (6-16); Blood Urea Nitrogen 44 mg/dL (8-24); Bun/Creatinine Ratio 29.7 (12.0-20.0); CO2, Blood 38 mmol/L (21-32); Calcium, Blood 9.1 mg/dL (8.5-10.1); Chloride, Blood 88 mmol/L (98-108); Creatinine, Blood 1.48 mg/dL (0.60-1.20); Glomerular Filtration Rate 48 (60-); Glucose, Blood 133 mg/dL (70-99); Magnesium, Blood 2.2 mg/dL (1.6-2.4); Phosphorus, Blood 3.7 mg/dL (2.5-4.9); Potassium, Blood 3.6 mmol/L (3.5-5.5); Sodium, Blood 134 mmol/L (136-145)
[2020-07-26 12:16] LABS: M-SPIKE, % Not Observed % (Not Observed); PROTEIN,TOTAL,URINE 8.7 mg/dL (Not Estab.)
--- NOTE | 2020-07-26 15:15 | NUR ---
07/26/20- spoke with son about visit with pt today. Son expressed his concerns. Offered that when he comes in for visiting hours to have pallative care talk about his concersn with them. He was agreeable. Son mentioned that his sister and niece will be in town tomorrow and he has asked that his dad not be d/c until he has more help in the home to care for pt and his . Notified Dr. Spicer of the above. -gigi
--- NOTE | 2020-07-26 15:58 | NUR ---
Family has arrived to visit with Pt. Pt sitting in chair upon arrival. Son Vincent and spouse Paticia at bedside. Pt pleasantly confused and no S/S of distress at this time. Son Vincent requests conversation outside of Pt's room. Spouse remains with Pt. Engaged in therapeutic discussion regarding goals of care. Vincent inquires about Pt's prognosis and asks "should we be considering hospice"? Deferred immediate prognosis for MD to discuss. Discussed Pt's usp prognosis and provided gentle education regarding condition of Pt's heart. Discussed hospice as being an option if this option would be Pt's wishes. Answered questions and continued therapeutic listening. Discussed PT recommendations. After a lengthy conversation Vincent reports Pt's spouse wants Pt home after "he gets better". Vincent reports spouse will want a few more days to see if Pt's mentation and function improves. Vincent reports no other concerns. Provided brief plan to spouse with spouse confirming wanting a few more days to determine if Pt improves. Discussed case with Bedside ADITHYA Adrian. Spoke with Dr Spicer and relayed conversation with son and family's wishes. Palliative Care will remain available for supportive visits.
--- NOTE | 2020-07-26 17:57 | NUR ---
NO VOID FROM PT SINCE RODRIGUEZ REMOVAL AT 1000, BLADDER SCAN DONE WITH RESULTS OF 283. T/C TO DR MCGRATH, ORDERS FOR 2 MG IV BUMEX X1 AND RESCAN BLADDER AT 2200, IF SCAN SHOWS >300 OR PT HAS NOT VOIDED, PLACE A RODRIGUEZ CATH
[2020-07-27 05:34] LABS: Hematocrit 32.1 % (37.0-53.0); Hemoglobin 10.4 g/dL (13.5-17.5)
--- NOTE | 2020-07-27 05:37 | NUR ---
AUTOMATIC BOW MAKER MACHINE TENDER SUMMARY PT A&OX2-3, PLEASANTLY CONFUSED, [place] AND FORGETFUL AT TIMES. NO C/O ANY PAIN OR DISCOMFORT THIS SHIFT. NO C/O CP, SOB, OR N&V. PT HAD NO REPORTED URINE OUTPUT SINCE DISCONTINUATION OF RODRIGUEZ CATH ON 07/26/20. BLADDER SCAN AT 2221 WAS 265cc, PT DENIES ANY DYSURIA OR SENSE URGENCY. PT BLADDER SCANNED AGAIN AT 0200 AND 369cc SCANNED. RODRIGUEZ CATH ORDERED, PT TOLERATED WELL. RODRIGUEZ PATENT AND DRAINING SEVERINO URINE. PT CONT ON 1500 FL RESTRICT. PT RESTING IN BED AT THIS TIME. BED AT LOWEST POSITION W/ ALARM ON, CALL LIGHT WITHIN REACH.
[2020-07-27 06:01] LABS: Anion Gap 8 mmol/L (6-16); Blood Urea Nitrogen 62 mg/dL (8-24); Bun/Creatinine Ratio 26.2 (12.0-20.0); CO2, Blood 36 mmol/L (21-32); Calcium, Blood 8.8 mg/dL (8.5-10.1); Chloride, Blood 88 mmol/L (98-108); Creatinine, Blood 2.37 mg/dL (0.60-1.20); Glomerular Filtration Rate 28 (60-); Glucose, Blood 133 mg/dL (70-99); Magnesium, Blood 2.2 mg/dL (1.6-2.4); Phosphorus, Blood 4.3 mg/dL (2.5-4.9); Potassium, Blood 3.9 mmol/L (3.5-5.5); Sodium, Blood 132 mmol/L (136-145)
--- NOTE | 2020-07-27 16:03 | NUR ---
Pt resting in bed upon arrival with his eyes closed. Pt appears comfortable with no S/S of distress at this time. This RN did not disturb Pt at this time. Spoke with Bedside RN Kaylah and discussed case. Pt still experiencing significant confusion. Pt is edematous in lower extremities and penis. Family recently left. Palliative Care will remain available.
--- NOTE | 2020-07-28 04:48 | NUR ---
SUPERVISOR CORE DRILLING SUMMARY PT A&OX2-3, ABLE TO MAKE NEEDS KNOWN, FORGETFUL AT TIMES. PT IS [place]. PLEASANT AND COOPERATIVE TO CARE. PT BEDREST. NO C/O PAIN OR ANY DISCOMFORT THIS SHIFT. NO C/O CP, SOB OR N&V. PT CONT ON O2 3LPM VIA NC, SAT >90%. RODRIGUEZ CATH PATENT, PT DENIES DYSURIA. PT CONT ON 1500 FL RESTRICTION. PT RESTING IN BED AT THIS TIME. BED AT LOWEST POSITION W/ ALARM ON. CALL LIGHT WITHIN REACH.
[2020-07-28 05:39] LABS: BASOPHILS ABSOLUTE AUTO 0.04 K/mm3 (0.00-0.23); BASOPHILS PERCENT AUTO 1 % (0-2); EOSINOPHILS ABSOLUTE AUTO 0.23 K/mm3 (0.00-0.68); EOSINOPHILS PERCENT AUTO 4 % (0-6); Hematocrit 32.1 % (37.0-53.0); Hemoglobin 10.3 g/dL (13.5-17.5); IMMATURE GRAN ABSOLUTE AUTO 0.04 K/mm3 (0.00-0.10); IMMATURE GRAN PERCENT AUTO 1 % (0-1); LYMPHOCYTES ABSOLUTE AUTO 0.77 K/mm3 (0.84-5.20); LYMPHOCYTES PERCENT AUTO 13 % (21-46); MONOCYTES ABSOLUTE AUTO 0.88 K/mm3 (0.16-1.47); MONOCYTES PERCENT AUTO 14 % (4-13); Mean Corpuscular HGB 29.3 pg (26.0-34.0); Mean Corpuscular HGB Conc 32.1 g/dL (31.5-36.5); Mean Corpuscular Volume 91 fL (80-100); Mean Platelet Volume 11.2 fL (9.1-12.4); NEUTROPHILS ABSOLUTE AUTO 4.17 K/mm3 (1.96-9.15); NEUTROPHILS PERCENT AUTO 68 % (41-73); Platelet Count 150 K/mm3 (150-400); RDW Coefficient Variation 15.5 % (11.7-14.2); RDW Standard Deviation 51.7 fL (35.1-46.3); Red Blood Cell Count 3.52 M/mm3 (4.30-5.90); White Blood Cell Count 6.13 K/mm3 (4.00-11.30)
[2020-07-28 06:08] LABS: Albumin, Blood 2.8 g/dL (3.4-5.0); Anion Gap 10 mmol/L (6-16); Blood Urea Nitrogen 75 mg/dL (8-24); Bun/Creatinine Ratio 31.5 (12.0-20.0); CO2, Blood 36 mmol/L (21-32); Calcium, Blood 8.9 mg/dL (8.5-10.1); Chloride, Blood 87 mmol/L (98-108); Creatinine, Blood 2.38 mg/dL (0.60-1.20); Glomerular Filtration Rate 28 (60-); Glucose, Blood 124 mg/dL (70-99); Magnesium, Blood 2.3 mg/dL (1.6-2.4); Phosphorus, Blood 5.3 mg/dL (2.5-4.9); Potassium, Blood 3.8 mmol/L (3.5-5.5); Sodium, Blood 133 mmol/L (136-145)
[2020-07-28 16:48] LABS: Source, Urine Catheter
[2020-07-28 16:51] LABS: Appearance, Urine Clear (Clear); Bilirubin, Urine Neg (Neg); Blood, Urine 2+ (Neg); Color, Urine Yellow (P-Yellow); Glucose Qualitative, Urine Neg (Neg); Ketones, Urine Neg (Neg); Leukocyte Esterase, Urine Neg (Neg); Nitrite, Urine Neg (Neg); Protein, Urine 2+ (Neg); Specific Gravity, Urine 1.015 (1.003-1.022); Urobilinogen, Urine NORM (Normal)
[2020-07-28 16:56] LABS: White Blood Cells, Urine 0-2 /hpf (0-5)
[2020-07-28 16:57] LABS: Amorphous Light (0-Heavy); Bacteria Not Seen /hpf; Squamous Epithelial Cells Not Seen /hpf (Few)
--- NOTE | 2020-07-28 17:57 | NUR ---
SHIFT SUMMARY PT AOX3-4. CALLS APPROPRIATELY. PLACED RODRIGUEZ TODAY FOR RETENTION. PT DENIES PAIN DURING THIS SHIFT AND PT IS ON 2-3L OF O2 SATS ABOVE 95%. SON AND CAME IN, AND STATED THEY WERE THINKING THAT THIS PT MIGHT BE BEST TO GO TO [facility] AFTER THE REHAB TX. PT MOVED TO MEDICAL 312 REPORT TO JAXON HAJI. BED ALARM IS AND CALL LIGHT WITHIN REACH
[2020-07-29 05:05] LABS: Hematocrit 32.8 % (37.0-53.0); Hemoglobin 10.5 g/dL (13.5-17.5)
[2020-07-29 05:30] LABS: Albumin, Blood 2.9 g/dL (3.4-5.0); Anion Gap 9 mmol/L (6-16); Blood Urea Nitrogen 77 mg/dL (8-24); CO2, Blood 35 mmol/L (21-32); Calcium, Blood 8.7 mg/dL (8.5-10.1); Chloride, Blood 89 mmol/L (98-108); Creatinine, Blood 1.64 mg/dL (0.60-1.20); Glomerular Filtration Rate 43 (60-); Glucose, Blood 142 mg/dL (70-99); Magnesium, Blood 2.1 mg/dL (1.6-2.4); Phosphorus, Blood 4.6 mg/dL (2.5-4.9); Potassium, Blood 3.4 mmol/L (3.5-5.5); Sodium, Blood 133 mmol/L (136-145)
--- NOTE | 2020-07-29 06:36 | NUR ---
SHIFT SUMMARY PT IS AN 85 Y/O MALE, ADMITTED FOR SINUS BRADYCARDIA AND A UTI. HE IS A&O X 2, CONFUSED AND FORGETFUL AT TIMES. HE IS ON 2L OF O2 VIA NC. VITAL SIGNS STABLE. RODRIGUEZ IN PLACE FOR RETENTION, PATENT AND DRAINING. NO C/O ACUTE PAIN, NAUSEA OR SOB. NO ACUTE CHANGES IN PT CONDITION NOTED. WILL CONTINUE TO MONITOR AND TREAT PER EMAR UNTIL HAND OFF TO DAY SHIFT RN.
[2020-07-30 04:44] LABS: BASOPHILS ABSOLUTE AUTO 0.03 K/mm3 (0.00-0.23); BASOPHILS PERCENT AUTO 0 % (0-2); EOSINOPHILS ABSOLUTE AUTO 0.19 K/mm3 (0.00-0.68); EOSINOPHILS PERCENT AUTO 3 % (0-6); Hematocrit 33.8 % (37.0-53.0); IMMATURE GRAN ABSOLUTE AUTO 0.05 K/mm3 (0.00-0.10); IMMATURE GRAN PERCENT AUTO 1 % (0-1); LYMPHOCYTES ABSOLUTE AUTO 0.89 K/mm3 (0.84-5.20); LYMPHOCYTES PERCENT AUTO 13 % (21-46); MONOCYTES ABSOLUTE AUTO 0.67 K/mm3 (0.16-1.47); MONOCYTES PERCENT AUTO 10 % (4-13); Mean Corpuscular HGB 29.1 pg (26.0-34.0); Mean Corpuscular HGB Conc 32.5 g/dL (31.5-36.5); Mean Corpuscular Volume 89 fL (80-100); Mean Platelet Volume 10.4 fL (9.1-12.4); NEUTROPHILS ABSOLUTE AUTO 5.13 K/mm3 (1.96-9.15); NEUTROPHILS PERCENT AUTO 74 % (41-73); Platelet Count 157 K/mm3 (150-400); RDW Coefficient Variation 15.1 % (11.7-14.2); RDW Standard Deviation 49.6 fL (35.1-46.3); Red Blood Cell Count 3.78 M/mm3 (4.30-5.90); White Blood Cell Count 6.96 K/mm3 (4.00-11.30)
[2020-07-30 04:59] LABS: Anion Gap 7 mmol/L (6-16); Blood Urea Nitrogen 68 mg/dL (8-24); Bun/Creatinine Ratio 55.3 (12.0-20.0); CO2, Blood 38 mmol/L (21-32); Calcium, Blood 9.1 mg/dL (8.5-10.1); Chloride, Blood 90 mmol/L (98-108); Creatinine, Blood 1.23 mg/dL (0.60-1.20); Glomerular Filtration Rate 60 (60-); Glucose, Blood 137 mg/dL (70-99); Phosphorus, Blood 2.9 mg/dL (2.5-4.9); Potassium, Blood 3.4 mmol/L (3.5-5.5); Sodium, Blood 135 mmol/L (136-145)
--- NOTE | 2020-07-30 07:20 | NUR ---
SHIFT SUMMARY PT IS A N 85 Y/O MALE, ADMITTED FOR SINUS BRADYCARDIA. HE IS A&O X SELF AND FAMILY, AND WAS VERY CONFUSED DURING THE NIGHT. BED ALARM WAS ON DUE TO PT REPEATEDLY TRYING TO GET OUT OF BED. NO C/O PAIN, NAUSEA OR SOB. VITAL SIGNS STABLE. ON 2L OF O2 VIA NC, THOUGH PT WILL OFTEN TAKE IT OFF. RODRIGUEZ IN PLACE FOR RETENTION, PATENT AND DRAINING. NO OTHER ACUTE CHANGES IN PT CONDITION NOTED DURING THE NIGHT. WILL CONTINUE TO MONITOR AND TREAT PER EMAR UNTIL HAND OFF TO DAY SHIFT RN.
--- NOTE | 2020-07-30 15:32 | NUR ---
SUMMARY: 07/30/20- SPOKE WITH SON AND DAUGHTER. THEY ARE ASKING FOR ASSISTANCE WITH GETTING PT A MOTORIZED CHAIR TO HELP HIM GET UP FROM SITTING. THEY ARE ALSO LOOKING AT GETTING A BED THAT HAS ABILITY TO RAISE AND LOWER THE HEAD/FEET OF THE BED. PROVIDED THEM WITH MEDICARE PAMPHLET FOR PAYING FOR THESE ITEMS. SPOKE WITH DR. PYLE, REQUESTING THAT HE DOCUMENT THE PATIENT'S NEEDS. SPOKE WITH PT, AND SON ABOUT REFERRAL TO SNF. THEY ARE AGREEABLE WITH THIS AND FORM FILLED OUT FOR [facility] AND GIVEN TO [facility] TO START THE REVIEW PROCESS. EST D/C WOULD BE EITHER OR . -GENOVEVA
--- NOTE | 2020-07-30 18:13 | NUR ---
SHIFT SUMMARY PT IS AOX2 AND FORGETFUL. PT DENIES PAIN, N/V, SOB. PT IS ONE PERSON ASSIST IN ROOM AND WORKED WITH OT TODAY. PLAN IS FOR DC TO SNF, THEN [facility]. RODRIGUEZ CATHETER DC'D TODAY AND PT HAS HAD GOOD OUTPUT SINCE. PT HAS BEEN INCONTINENT OF BLADDER SINCE RODRIGUEZ REMOVAL. PT HAD FAMILY IN THIS [place]. PT HAS GOOD APPETITE. PT IS IN BED, CALL LIGHT IN REACH, BED IN LOW POSITION.
[2020-07-31 04:47] LABS: Hematocrit 36.5 % (37.0-53.0); Hemoglobin 11.9 g/dL (13.5-17.5)
[2020-07-31 05:09] LABS: Albumin, Blood 3.3 g/dL (3.4-5.0); Anion Gap 7 mmol/L (6-16); Blood Urea Nitrogen 63 mg/dL (8-24); Bun/Creatinine Ratio 64.7 (12.0-20.0); CO2, Blood 36 mmol/L (21-32); Calcium, Blood 9.2 mg/dL (8.5-10.1); Chloride, Blood 93 mmol/L (98-108); Creatinine, Blood 0.97 mg/dL (0.60-1.20); Glomerular Filtration Rate >60 (60-); Glucose, Blood 156 mg/dL (70-99); Magnesium, Blood 1.8 mg/dL (1.6-2.4); Potassium, Blood 3.6 mmol/L (3.5-5.5); Sodium, Blood 136 mmol/L (136-145)
--- NOTE | 2020-07-31 07:34 | NUR ---
SHIFT SUMMARY NO ACUTE CHANGES T/O SHIFT, A&Ox4 BUT FORGETFUL AT TIMES AND CONFUSED T/O NIGHT (EASY TO REORIENTATE), CALM AND COOPERATIVE WITH CARE. PT IS ON 2 L/MIN NC, THIS IS BASELINE FOR PT. PT REPORTED SOME SOB AT BEGINNING OF SHIFT, BREATHING TX PROVIDED AND PT STATED HE FELT MUCH BETTER AND NO LONGER SOB. PT DOES OFTEN TAKE OFF HIS O2 AND GETS UP TO SIDE OF BED T/O NIGHT WITHOUT CALLING. BED ALARM WAS ON T/O SHIFT. PT HAD FREQUENT URINATION T/O NIGHT WITH SMALL VOIDS EACH TIME. PT IS CURRENTLY SLEEPING WITH BED ALARM ON AND CALL LIGHT WITHIN REACH. BUMEX CHANGED TO IV 2 MG DAILY PER MURPHY THIS SHIFT.
--- NOTE | 2020-07-31 18:30 | NUR ---
SHIFT SUMMARY PT UP TO BATHROOM WITH 1 PERSON ASSIST USING FWW. HAS VOIDING MULTIPLE TIMES IN SMALL AMOUNTS. BLADDER SCAN COMPLETED LATE THIS MORNING AND PT HAD LESS THAN 200ML AFTER VOIDING. WAS IRRITABLE THIS MORNING INSISTING HE WAS GOING HOME TODAY. LATER THIS AFTERNOON IT WAS DECIDED HE WILL LEAVE ON THURSDAY AND MOVE DIRECTLY INTO [facility] WITH HIS . HAS MADE NO FURTHER COMMENTS ABOUT GOING HOME TODAY SINCE THEN. NO RESP. DISTRESS NOTED.
--- NOTE | 2020-08-01 04:45 | NUR ---
IRON BENDER SUMMARY PT A&OX2-3, FORGETFUL AND CONFUSED AT TIMES. EASILY REDIRECTABLE BY STAFF. COOPERATIVE WITH CARE. PT HAD NO C/O PAIN OR ANY DISCOMFORT. NO C/O CP, SOB, OR N&V. PT CONT ON 3LPM O2 VIA NC, SATS >90%, RESPS EVEN AND UNLABORED. PT MOSTLY CONTINENT THIS SHIFT, ABLE TO USE URINAL W/ SOME ASSISTANCE FROM STAFF. DENIES DYSURIA. PT CALM AND RESTING IN BED AT THIS TIME. BED AT LOWEST POSITION, ALARM ON, AND CALL LIGHT WITHIN REACH.
[2020-08-01 04:58] LABS: Hematocrit 34.3 % (37.0-53.0); Hemoglobin 10.9 g/dL (13.5-17.5)
[2020-08-01 05:28] LABS: Albumin, Blood 3.1 g/dL (3.4-5.0); Anion Gap 4 mmol/L (6-16); Blood Urea Nitrogen 58 mg/dL (8-24); CO2, Blood 40 mmol/L (21-32); Calcium, Blood 9.3 mg/dL (8.5-10.1); Chloride, Blood 94 mmol/L (98-108); Creatinine, Blood 0.94 mg/dL (0.60-1.20); Glomerular Filtration Rate >60 (60-); Glucose, Blood 147 mg/dL (70-99); Magnesium, Blood 1.7 mg/dL (1.6-2.4); Phosphorus, Blood 3.1 mg/dL (2.5-4.9); Potassium, Blood 3.5 mmol/L (3.5-5.5); Sodium, Blood 138 mmol/L (136-145)
--- NOTE | 2020-08-01 17:52 | NUR ---
08/01/20 Plans completed for Move in to [facility] on afternoon. Chart note and order for lift chair left for daughter in patients room. [facility], called [facility] re: discharge. Family will move Oxygen and dme to [facility] prior to discharge on . Family will transport home. cp
--- NOTE | 2020-08-01 19:46 | NUR ---
shift summary pt was groggy this morning but roused to eat and take his meds. approx 1030 pt jumped out of bed and insisted he was leaving right now and he was going home. attempted to explain to him he was going to go home tomorrow and move into [facility] with his . pt would'nt listen to what was being said and would yell he was leaving. did start to calm down after a 2nd staff member and tom the health care analyst spoke with him. has been up and down most of the day voiding small amounts of urine as he was yesterday. bladder scanned for greater than 999 though approx 1630. spoke with md and received order to straight cath. cathed for 850 and pt calmed down and fell asleep. at 1845 pt got out of bed and was grabbing his belongings while bed alarm sounding. attempted to direct pt back to bed or chair but he was yelling he was going home immediately and no one was stopping him. kept attempting to push past staff. grabbed walker and started walking from room. o2 removed at that point due to not being able to redirect him. walked in hallway yelling he was leaving. managed to get to elevator area and said he was close to [facility]. a family member was called and pt spoke with him on the phone. family came to hospital and took pt outside after discussing with pt he was not going home today but tomorrow. pt more cooperative after speaking with friend. has been transferred to scu and report given to oncoming shift.
[2020-08-02 05:36] LABS: Hematocrit 34.3 % (37.0-53.0)
--- NOTE | 2020-08-02 06:02 | NUR ---
SHIFT SUMMARY PT IS AN 85 Y/O MALE, ORIGINALLY ADMITTED FOR SINUS BRADYCARDIA. PT IS A&O X SELF AND FAMILY, VERY CONFUSED AND IRRITABLE AT TIMES. PT WAS TRANSFERED FROM 313 TO 350 AT START OF SHIFT DUE TO PT'S EPISODE OF AGITATION AND ATTEMPTING TO LEAVE AMA. PT'S FAMILY MEMBER WILIAM CAME TO TALK TO HIM AND CONVINCED HIM TO STAY ANOTHER NIGHT. PT WAS GIVEN HS MEDS AND A PRN MELATONIN, AND SLEPT WELL FOR A FEW HOURS. PT THEN WOKE UP, AGITATED AND DEMANDING TO GO HOME, TRYING TO CALL 911 BECAUSE HE WAS "BEING HELD HOSTAGE". PT HAS REPEATEDLY STATED THAT "I WANT TO GO HOME," HAS NOT SLEPT SINCE APPROXIMATELY 2230. PT FAMILY MEMBER WILIAM WAS CALLED, AND CAME IN TO STAY WITH THE PT FOR THE NIGHT. PLAN IS FOR PT TO DC TO [facility] TODAY 08/02. NO C/O PAIN, NAUSEA OR SOB. AM BP WAS LOW THIS AM AT 93/54. ALL OTHER VITALS STABLE. NO OTHER ACUTE CHANGES IN PT CONDITION NOTED. WILL CONTINUE TO MONITOR AND TREAT PER EMAR UNTIL HAND OFF TO DAY SHIFT RN.
[2020-08-02 06:05] LABS: Anion Gap 5 mmol/L (6-16); Blood Urea Nitrogen 55 mg/dL (8-24); Bun/Creatinine Ratio 56.4 (12.0-20.0); CO2, Blood 38 mmol/L (21-32); Calcium, Blood 9.1 mg/dL (8.5-10.1); Chloride, Blood 93 mmol/L (98-108); Creatinine, Blood 0.98 mg/dL (0.60-1.20); Glomerular Filtration Rate >60 (60-); Glucose, Blood 194 mg/dL (70-99); Magnesium, Blood 1.8 mg/dL (1.6-2.4); Phosphorus, Blood 3.5 mg/dL (2.5-4.9); Potassium, Blood 3.5 mmol/L (3.5-5.5); Sodium, Blood 136 mmol/L (136-145)
[2020-08-02] MEDS ORDERED: MELATONIN5 M1 PO (10:57)
--- NOTE | 2020-08-02 11:40 | NUR ---
SON UPDATED REGARDING DISCHARGE WELL ADITHYA SINHA AT [facility] UPDATED.
--- NOTE | 2020-08-02 11:49 | NUR ---
DR PYLE IN TO SEE PT. PER DR PYLE REPLACE RODRIGUEZ CATHETER FOR CONTINUED RETENTION. PLACE ZIO PATCH PRIOR TO DISCHARGE. [facility] NOTIFIED.
--- NOTE | 2020-08-02 12:05 | NUR ---
CHARTED BY BI LEAD STUDENT
[2020-08-02] MEDS ORDERED: FINA5 PO (12:27)
[2020-08-02 12:31] LABS: Source, Urine Catheter
[2020-08-02 12:44] LABS: Appearance, Urine Clear (Clear); Bilirubin, Urine Neg (Neg); Blood, Urine 5+ (Neg); Color, Urine Yellow (P-Yellow); Glucose Qualitative, Urine Neg (Neg); Ketones, Urine Neg (Neg); Leukocyte Esterase, Urine 1+ (Neg); Nitrite, Urine Neg (Neg); Protein, Urine 3+ (Neg); Urobilinogen, Urine NORM (Normal); pH, Urine 6.5 (5.0-8.0)
[2020-08-02 13:07] LABS: Red Blood Cells, Urine 25-50 /hpf (0-2)
[2020-08-02 13:08] LABS: Bacteria Mod /hpf; Squamous Epithelial Cells Not Seen /hpf (Few)
--- NOTE | 2020-08-02 15:47 | NUR ---
DISCHARGE INSTRUCTIONS REVIEWED WITH PT AND SON/FAMILY FRIEND. IV DC'D INTACT. RX FAXED TO [facility]. RODRIGUEZ REPLACED FOR RETENTION, SLIGHT BLOODY URINE NOTED AFTER PLACEMENT, [facility] RN NOTIFIED. HOME 02 EVAL COMPLETED AND NO NEED FOR 02 DURING THE DAY, PT HAS HOME 02 FOR AT NIGHT. ZIO PATCH PLACED AND BOX SENT WITH FAMILY. FOLLOW UP APPT MADE WITH DR MURPHY AND PCP TO CALL TO SCHEDULE F/U APPT AND TO SET UP OUTPATIENT UROLOGY REFERAL. PT STARTED ON PROSCAR WELL ON FLOMAX. PT DC'D TO [facility] W/C, SON AND DAUGHTER AT BEDSIDE. REPORT CALLED TO ERNESTINE HAJI AT [facility] AND UPDATE GIVEN. PT DC'D AT 1555.
--- NOTE | 2020-08-02 17:36 | NUR ---
08/02/20 discharged to [facility] by wheelchair transport. Only requires nightime oxygen Rodrigues placed prior to discharge Ziopatch placed prior to discharge [facility] contacted about additon of rodrigues catheter. Luther will call [facility] for justin and 1 week appointment with Luther. jamie
== END 2020-08-02 15:55 | disposition home health service (06) | DRG 308 ==
LOC: ER 20:04 → MEDS 07-16 00:08 → ICUW 07-16 00:08 → MEDS 07-16 15:20 → PCU 07-24 19:18 → MEDS 07-25 18:42
PROVIDERS: Family Medicine; Hospitalist; Internal Medicine; Internal Medicine Gastroenterology; Internal Medicine Interventional Cardiology; Internal Medicine Nephrology; Physician Assistant; ADMIT Internal Medicine
DX: R00.1 Bradycardia, unspecified (principal); G93.41 Metabolic encephalopathy; I50.23 Acute on chronic systolic (congestive) heart failure; A41.9 Sepsis, unspecified organism; R65.20 Severe sepsis without septic shock; J96.11 Chronic respiratory failure with hypoxia; N25.81 Secondary hyperparathyroidism of renal origin; I13.0 Hypertensive heart and chronic kidney disease with heart failure and stage 1 through stage 4 chronic kidney disease, or unspecified chronic kidney disease; N17.9 Acute kidney failure, unspecified; E87.1 Hypo-osmolality and hyponatremia; N39.0 Urinary tract infection, site not specified; I48.0 Paroxysmal atrial fibrillation; Z79.84 Long term (current) use of oral hypoglycemic drugs; I25.10 Atherosclerotic heart disease of native coronary artery without angina pectoris; E78.5 Hyperlipidemia, unspecified; I25.2 Old myocardial infarction; Z66 Do not resuscitate; Z98.52 Vasectomy status; Z96.641 Presence of right artificial hip joint; Z79.82 Long term (current) use of aspirin; Z87.891 Personal history of nicotine dependence; Z95.5 Presence of coronary angioplasty implant and graft; I44.7 Left bundle-branch block, unspecified; Z20.822 Contact with and (suspected) exposure to COVID-19; Z95.2 Presence of prosthetic heart valve; J44.9 Chronic obstructive pulmonary disease, unspecified; Z99.81 Dependence on supplemental oxygen; N18.2 Chronic kidney disease, stage 2 (mild); E88.09 Other disorders of plasma-protein metabolism, not elsewhere classified; I25.5 Ischemic cardiomyopathy; E11.42 Type 2 diabetes mellitus with diabetic polyneuropathy; E87.6 Hypokalemia; F03.90 Unspecified dementia, unspecified severity, without behavioral disturbance, psychotic disturbance, mood disturbance, and anxiety; I87.2 Venous insufficiency (chronic) (peripheral); N40.1 Benign prostatic hyperplasia with lower urinary tract symptoms; Z51.5 Encounter for palliative care; Z78.1 Physical restraint status
CPT/HCPCS: 0241U; 36415; 70450; 71045; 71275; 80048; 80053; 80069; 80074; 81001; 81003; 81050; 82784; 82947; 83516; 83520; 83605; 83735; 83880; 84100; 84156; 84165; 84166; 84300; 84484; 85014; 85018; 85025; 85379; 86256; 86334; 86335; 87040; 87077; 87086; 87186; 93005; 93010; 93246; 94640; 94760; 94761; 97110; 97116; 97162; 97165; 97530; 97530-CQ; 97535; 99285-25; A9270; G0378; J0456; J0696; J1940; J7030; J7050; P9046; Q9967

== ENCOUNTER 2020-08-06 02:46 | Emergency (ER) | payer MEDICARE, OTHER ==
[~2020-08-06] VITALS: Ht 188 cm; Wt 94.3 kg
[~2020-08-06 02:46] MED LIST changes: +ANORO ELLIPTA1 EACH INH; +ANTIFUNGAL POWD71 GM TOP; +BUME2 PO; +FINA5 PO; +FUROSEMIDE20 MG PO; +MELATONIN5 M1 PO; +METO5 PO; +MIRALAX17 GM PO; +Potassium Chlo20 ME1 PO; +SPIR25 PO
[2020-08-06] MEDS ORDERED: ANORO ELLIPTA1 EACH INH (03:10)
[2020-08-06 03:53] LABS: BASOPHILS ABSOLUTE AUTO 0.04 K/mm3 (0.00-0.23); BASOPHILS PERCENT AUTO 0 % (0-2); EOSINOPHILS ABSOLUTE AUTO 0.08 K/mm3 (0.00-0.68); EOSINOPHILS PERCENT AUTO 1 % (0-6); Hematocrit 33.6 % (37.0-53.0); Hemoglobin 10.6 g/dL (13.5-17.5); IMMATURE GRAN ABSOLUTE AUTO 0.06 K/mm3 (0.00-0.10); IMMATURE GRAN PERCENT AUTO 1 % (0-1); LYMPHOCYTES ABSOLUTE AUTO 0.79 K/mm3 (0.84-5.20); LYMPHOCYTES PERCENT AUTO 8 % (21-46); MONOCYTES ABSOLUTE AUTO 0.69 K/mm3 (0.16-1.47); MONOCYTES PERCENT AUTO 7 % (4-13); Mean Corpuscular HGB 29.1 pg (26.0-34.0); Mean Corpuscular HGB Conc 31.5 g/dL (31.5-36.5); Mean Corpuscular Volume 92 fL (80-100); Mean Platelet Volume 10.4 fL (9.1-12.4); NEUTROPHILS ABSOLUTE AUTO 8.44 K/mm3 (1.96-9.15); NEUTROPHILS PERCENT AUTO 84 % (41-73); Platelet Count 209 K/mm3 (150-400); RDW Coefficient Variation 15.5 % (11.7-14.2); RDW Standard Deviation 52.1 fL (35.1-46.3); Red Blood Cell Count 3.64 M/mm3 (4.30-5.90)
[2020-08-06 04:08] LABS: Alanine Aminotransfer (ALT/SGP 62 U/L (12-78); Albumin, Blood 3.2 g/dL (3.4-5.0); Albumin/Globulin Ratio 0.7 (0.8-1.8); Alk Phos 284 U/L (50-136); Anion Gap 4 mmol/L (6-16); Aspartate Aminotrans (AST/SGOT 128 U/L (12-37); Bilirubin, Total 0.9 mg/dL (0.1-1.0); Blood Urea Nitrogen 47 mg/dL (8-24); Bun/Creatinine Ratio 43.1 (12.0-20.0); CO2, Blood 35 mmol/L (21-32); Chloride, Blood 97 mmol/L (98-108); Creatinine, Blood 1.09 mg/dL (0.60-1.20); Globulin, Blood 4.6 g/dL (2.2-4.0); Glomerular Filtration Rate >60 (60-); Glucose, Blood 144 mg/dL (70-99); Sodium, Blood 136 mmol/L (136-145); Total Protein, Blood 7.8 g/dL (6.4-8.2)
== END 2020-08-06 08:27 | disposition home or self-care (01) ==
LOC: ER 02:46
PROVIDERS: Emergency Medicine
DX: T83.83XA Hemorrhage due to genitourinary prosthetic devices, implants and grafts, initial encounter (principal); J90 Pleural effusion, not elsewhere classified; K44.9 Diaphragmatic hernia without obstruction or gangrene; I11.0 Hypertensive heart disease with heart failure; I50.22 Chronic systolic (congestive) heart failure; E11.9 Type 2 diabetes mellitus without complications; I25.2 Old myocardial infarction; E78.5 Hyperlipidemia, unspecified; Z79.82 Long term (current) use of aspirin; Z79.899 Other long term (current) drug therapy; Z79.02 Long term (current) use of antithrombotics/antiplatelets; Z88.8 Allergy status to other drugs, medicaments and biological substances; Z95.5 Presence of coronary angioplasty implant and graft; Z87.891 Personal history of nicotine dependence
CPT/HCPCS: 36415; 74177; 80053; 85025; 99284-25; Q9967

== ENCOUNTER 2020-08-08 07:12 | Emergency (ER) | payer MEDICARE, OTHER ==
[~2020-08-08] VITALS: Ht 188 cm; Wt 92.5 kg
== END 2020-08-08 09:30 | disposition home or self-care (01) ==
LOC: ER 07:12
DX: T83.091A Other mechanical complication of indwelling urethral catheter, initial encounter (principal); I25.10 Atherosclerotic heart disease of native coronary artery without angina pectoris; I10 Essential (primary) hypertension; E11.9 Type 2 diabetes mellitus without complications; I25.2 Old myocardial infarction; Z88.8 Allergy status to other drugs, medicaments and biological substances; Z79.82 Long term (current) use of aspirin; Z79.84 Long term (current) use of oral hypoglycemic drugs; Z79.899 Other long term (current) drug therapy; Z79.02 Long term (current) use of antithrombotics/antiplatelets; Z95.5 Presence of coronary angioplasty implant and graft; Z87.891 Personal history of nicotine dependence; N18.30 Chronic kidney disease, stage 3 unspecified; D63.1 Anemia in chronic kidney disease; E55.9 Vitamin D deficiency, unspecified; N25.81 Secondary hyperparathyroidism of renal origin; E78.00 Pure hypercholesterolemia, unspecified; R76.9 Abnormal immunological finding in serum, unspecified; R94.5 Abnormal results of liver function studies; R94.6 Abnormal results of thyroid function studies; D51.8 Other vitamin B12 deficiency anemias
CPT/HCPCS: 36415; 51702; 51798; 80069; 82607; 82728; 82746; 83540; 83550; 83735; 99283-25

== ENCOUNTER 2020-08-09 15:42 | Emergency (ER) | payer MEDICARE, OTHER ==
[~2020-08-09] VITALS: Ht 188 cm; Wt 92.5 kg
== END 2020-08-09 18:30 | disposition home or self-care (01) ==
LOC: ER 15:42
DX: Z46.6 Encounter for fitting and adjustment of urinary device (principal); Z88.8 Allergy status to other drugs, medicaments and biological substances; Z79.82 Long term (current) use of aspirin; Z79.899 Other long term (current) drug therapy; Z87.891 Personal history of nicotine dependence
CPT/HCPCS: 36415; 51702; 99283-25

== ENCOUNTER 2020-08-20 11:35 | Emergency (ER) | payer OTHER, MEDICARE ==
[~2020-08-20] VITALS: Ht 188 cm; Wt 79.4 kg
[2020-08-20 12:05] LABS: BASOPHILS ABSOLUTE AUTO 0.04 K/mm3 (0.00-0.23); BASOPHILS PERCENT AUTO 1 % (0-2); EOSINOPHILS ABSOLUTE AUTO 0.12 K/mm3 (0.00-0.68); EOSINOPHILS PERCENT AUTO 2 % (0-6); Hematocrit 26.4 % (37.0-53.0); Hemoglobin 8.5 g/dL (13.5-17.5); IMMATURE GRAN ABSOLUTE AUTO 0.03 K/mm3 (0.00-0.10); IMMATURE GRAN PERCENT AUTO 0 % (0-1); LYMPHOCYTES ABSOLUTE AUTO 0.82 K/mm3 (0.84-5.20); LYMPHOCYTES PERCENT AUTO 12 % (21-46); MONOCYTES ABSOLUTE AUTO 0.67 K/mm3 (0.16-1.47); MONOCYTES PERCENT AUTO 9 % (4-13); Mean Corpuscular HGB 29.5 pg (26.0-34.0); Mean Corpuscular HGB Conc 32.2 g/dL (31.5-36.5); Mean Corpuscular Volume 92 fL (80-100); Mean Platelet Volume 11.5 fL (9.1-12.4); NEUTROPHILS ABSOLUTE AUTO 5.44 K/mm3 (1.96-9.15); NEUTROPHILS PERCENT AUTO 76 % (41-73); Platelet Count 143 K/mm3 (150-400); RDW Coefficient Variation 15.8 % (11.7-14.2); RDW Standard Deviation 52.4 fL (35.1-46.3); Red Blood Cell Count 2.88 M/mm3 (4.30-5.90); White Blood Cell Count 7.12 K/mm3 (4.00-11.30)
[2020-08-20 12:31] LABS: Alanine Aminotransfer (ALT/SGP 29 U/L (12-78); Albumin, Blood 2.8 g/dL (3.4-5.0); Albumin/Globulin Ratio 0.7 (0.8-1.8); Alk Phos 160 U/L (50-136); Anion Gap 7 mmol/L (6-16); Aspartate Aminotrans (AST/SGOT 72 U/L (12-37); Bilirubin, Total 1.4 mg/dL (0.1-1.0); Blood Urea Nitrogen 27 mg/dL (8-24); Bun/Creatinine Ratio 29.6 (12.0-20.0); CO2, Blood 32 mmol/L (21-32); Calcium, Blood 8.6 mg/dL (8.5-10.1); Chloride, Blood 100 mmol/L (98-108); Creatinine, Blood 0.91 mg/dL (0.60-1.20); Globulin, Blood 3.9 g/dL (2.2-4.0); Glomerular Filtration Rate >60 (60-); Glucose, Blood 133 mg/dL (70-99); Potassium, Blood 4.2 mmol/L (3.5-5.5); Sodium, Blood 139 mmol/L (136-145); Total Protein, Blood 6.7 g/dL (6.4-8.2)
[2020-08-20 13:29] LABS: Source, Urine Catheter
[2020-08-20 13:33] LABS: Bilirubin, Urine Neg (Neg); Blood, Urine 5+ (Neg); Glucose Qualitative, Urine Neg (Neg); Ketones, Urine 2+ (Neg); Leukocyte Esterase, Urine 2+ (Neg); Nitrite, Urine Neg (Neg); Protein, Urine 4+ (Neg); Urobilinogen, Urine NORM (Normal); pH, Urine 6.5 (5.0-8.0)
[2020-08-20 13:43] LABS: Appearance, Urine Turbid (Clear); Color, Urine Red (P-Yellow)
[2020-08-20 13:49] LABS: Red Blood Cells, Urine TNTC /hpf (0-2); Squamous Epithelial Cells Not Seen /hpf (Few)
[2020-08-20 13:50] LABS: Bacteria Rare /hpf
== END 2020-08-20 14:26 | disposition home or self-care (01) ==
LOC: ER 11:35
PROVIDERS: Emergency Medicine
DX: T83.091A Other mechanical complication of indwelling urethral catheter, initial encounter (principal); R31.9 Hematuria, unspecified; I11.0 Hypertensive heart disease with heart failure; I50.22 Chronic systolic (congestive) heart failure; I25.10 Atherosclerotic heart disease of native coronary artery without angina pectoris; E11.9 Type 2 diabetes mellitus without complications; E78.5 Hyperlipidemia, unspecified; I25.2 Old myocardial infarction; Z88.8 Allergy status to other drugs, medicaments and biological substances; Z79.84 Long term (current) use of oral hypoglycemic drugs; Z79.899 Other long term (current) drug therapy; Z79.82 Long term (current) use of aspirin; Z95.5 Presence of coronary angioplasty implant and graft
CPT/HCPCS: 36415; 51702; 80053; 81001; 85025; 87086; 99283-25

== ENCOUNTER 2020-08-22 10:21 | Emergency (ER) | payer OTHER, MEDICARE ==
[~2020-08-22] VITALS: Ht 188 cm; Wt 90.7 kg
[2020-08-22 12:52] LABS: Source, Urine Catheter
[2020-08-22 13:26] LABS: Appearance, Urine Cloudy (Clear); Bilirubin, Urine Neg (Neg); Blood, Urine 5+ (Neg); Color, Urine Amber (P-Yellow); Glucose Qualitative, Urine Neg (Neg); Ketones, Urine Neg (Neg); Leukocyte Esterase, Urine 3+ (Neg); Nitrite, Urine Neg (Neg); Protein, Urine 3+ (Neg); Urobilinogen, Urine 1+ (Normal)
[2020-08-22 13:54] LABS: Bacteria Many /hpf; Red Blood Cells, Urine TNTC /hpf (0-2); Squamous Epithelial Cells Few /hpf (Few); White Blood Cells, Urine TNTC /hpf (0-5)
== END 2020-08-22 15:50 | disposition home or self-care (01) ==
LOC: ER 10:21
PROVIDERS: Emergency Medicine
DX: T83.031A Leakage of indwelling urethral catheter, initial encounter (principal); E11.9 Type 2 diabetes mellitus without complications; I25.10 Atherosclerotic heart disease of native coronary artery without angina pectoris; I10 Essential (primary) hypertension; E78.5 Hyperlipidemia, unspecified; I25.2 Old myocardial infarction; Z79.899 Other long term (current) drug therapy; Z79.82 Long term (current) use of aspirin; Z88.8 Allergy status to other drugs, medicaments and biological substances; Z79.02 Long term (current) use of antithrombotics/antiplatelets; Z79.84 Long term (current) use of oral hypoglycemic drugs; Z95.5 Presence of coronary angioplasty implant and graft; Z87.891 Personal history of nicotine dependence
CPT/HCPCS: 51702; 51798; 81001; 87086; 99283

== ENCOUNTER 2020-08-24 07:27 | Emergency (ER) | payer OTHER, MEDICARE ==
[~2020-08-24] VITALS: Ht 172.7 cm; Wt 68.0 kg
[2020-08-24] MEDS ORDERED: Vitamin D2000 UNIT PO (07:39)
[2020-08-24] MEDS ORDERED: BISA10S PR (07:40)
[2020-08-24] MEDS ORDERED: Ativan1 MG PO (07:41)
[2020-08-24] MEDS ORDERED: MORP20L PO (07:42)
== END 2020-08-24 10:34 | disposition home or self-care (01) ==
LOC: ER 07:27
DX: S39.94XA Unspecified injury of external genitals, initial encounter (principal); I11.0 Hypertensive heart disease with heart failure; I50.22 Chronic systolic (congestive) heart failure; E11.9 Type 2 diabetes mellitus without complications; E78.5 Hyperlipidemia, unspecified; Z88.8 Allergy status to other drugs, medicaments and biological substances; Z79.84 Long term (current) use of oral hypoglycemic drugs; Z79.82 Long term (current) use of aspirin; Z79.899 Other long term (current) drug therapy; Z87.891 Personal history of nicotine dependence; X58.XXXA Exposure to other specified factors, initial encounter
CPT/HCPCS: 99283

== ENCOUNTER 2020-08-25 00:05 | Emergency (ER) | payer OTHER ==
[~2020-08-25] VITALS: Ht 182.9 cm; Wt 79.4 kg
[~2020-08-25 00:05] MED LIST changes: +Ativan1 MG PO; +BISA10S PR; +MORP20L PO
== END 2020-08-25 03:48 | disposition home or self-care (01) ==
LOC: ER 00:05
DX: T83.83XD Hemorrhage due to genitourinary prosthetic devices, implants and grafts, subsequent encounter (principal); Z79.84 Long term (current) use of oral hypoglycemic drugs; Z79.82 Long term (current) use of aspirin; Z79.899 Other long term (current) drug therapy
CPT/HCPCS: 51798; 99283

== ENCOUNTER → 2020-08-30 | Outpatient (CLI) | payer OTHER, MEDICARE ==
[2020-08-30 10:55] LABS: Albumin, Blood 2.9 g/dL (3.4-5.0); Anion Gap 6 mmol/L (6-16); Blood Urea Nitrogen 73 mg/dL (8-24); Bun/Creatinine Ratio 38.8 (12.0-20.0); CO2, Blood 31 mmol/L (21-32); Calcium, Blood 8.4 mg/dL (8.5-10.1); Chloride, Blood 94 mmol/L (98-108); Creatinine, Blood 1.88 mg/dL (0.60-1.20); Glomerular Filtration Rate 37 (60-); Glucose, Blood 131 mg/dL (70-99); Phosphorus, Blood 5.5 mg/dL (2.5-4.9); Potassium, Blood 5.2 mmol/L (3.5-5.5); Sodium, Blood 131 mmol/L (136-145)
== END | disposition home or self-care (01) ==
LOC: LAB 09:00 → LAB SHORT 09:00
PROVIDERS: Internal Medicine Nephrology
DX: N18.30 Chronic kidney disease, stage 3 unspecified (principal); D63.1 Anemia in chronic kidney disease
CPT/HCPCS: 80069; 85018